=== PATIENT | male | born 1940 | race Caucasian/White ===

== ENCOUNTER 2018-04-07 09:49 | Inpatient (IN) | payer MEDICARE, BC ==
--- NOTE | 2018-04-07 11:05 | HP ---
CHIEF COMPLAINT: Exacerbation of chronic obstructive pulmonary disease with altered mental status. HISTORY OF PRESENT ILLNESS: The patient is a 77-year-old male who the brings in for altered men charli status. She states that it occurred about 11:00 p.m. last night that he would not go to bed, was disoriented and talking out of his head, did not know where he was, extremely confused, had a high f all risk. He states that he has for several days has been feeling tired and worn out with no energy and on arrival in my office today, his blood pressure is 83/46. Initially he had a pulse rate 142, b ut when I examined him I picked up a pulse of high 60s, low 70s. He is a pale and weak. He continue s to smoke despite orders to stop for many years now. He gets winded with minimal exertion. Current ly, he is alert, oriented, and responsive. Denies chest pain, but is constantly dyspneic. PAST MEDICAL HISTORY: COPD, chronic insomnia, severe generalized anxiety disorder, mild noninsulin d ependent diabetes, BPH. He has presbycusis. PAST SURGICAL HISTORY: Included left inguinal herniorrhaphy, appendectomy in 2010 and hemilaminectom y in 2014. ALLERGIES: He is allergic to nothing. MEDICATIONS ON ADMISSION: Alprazolam 1 mg b.i.d., temazepam 30 mg at bedtime, Avodart 0.5 mg once a day, Dulera 200 mcg 2 puffs daily, metformin 500 mg daily, Flomax 0.4 mg daily, Tesfaye aspirin 81 mg d aily, and an [id number] prostate formula. SOCIAL HISTORY: He is , continues to smoke. Denies significant alcohol intake. He is retire d. FAMILY HISTORY: Noncontributory. REVIEW OF SYSTEMS: GENERAL: Denies fever, chills, general pain. HEENT: Denies blurred vision. He does have severe hearing disorder. He has presbycusis. Denies pa in in his ears. Nose: Denies drainage. Pharynx; denies sores or discharge. NECK: Denies any pain or swelling. CHEST: Admits to chronic shortness of breath and dyspnea. CARDIOVASCULAR: Denies chest pain or palpitations. ABDOMEN: Denies nausea, vomiting. : Denies dysuria or blood in urine or stool. MUSCULOSKELETAL: Admits to general weakness in all muscle groups, but denies specific areas of pain and swelling. HEME/LYMPH: Denies areas of edema or nodules. SKIN: No acute rashes or lesions. NEUROLOGIC: will speak for the patient stating how confused and disoriented he was the last ayaan tierney. He is somewhat improved at this point. PHYSICAL EXAMINATION: VITAL SIGNS: As previously mentioned, blood pressure 83/46, pulse 142, respirations 20, temperature 98.2, weight 143. He is 5 feet 9 inches tall. GENERAL: This is a cachectic, elderly male, alert, oriented, and responsive at this time. HEENT: Shows temporal wasting. Pupils at 2 mm with diminished reactivity. Arcus senilis bilaterall y. Nares and pharynx are clear. NECK: Supple, trachea midline, no mass. CHEST: With diminished breath sounds throughout. HEART: Regular rate and rhythm without murmur at a rate in the 70s from my exam. ABDOMEN: Soft, nontender, without organomegaly. GENITOURINARY: Normal male. EXTREMITIES: Without clubbing, cyanosis, or edema. Normal range of motion present. SKIN: Without new rashes or lesions. Turgor is good. NEUROLOGIC: Cranial nerves are intact. Gait and cerebellar function are weak, but intact. Sensory exam is grossly normal. Mental status shows slowed mentation and occasional confusion, but it does n ot last and he corrects himself and reorients himself. Deep tendon reflexes 2+ bilaterally. LABORATORY: Lab and x-rays are pending at the time of admission. ASSESSMENT: 1. Altered mental status - rule out hypoxia versus sundowning. 2. Exacerbation of chronic obstructive pulmonary disease. 3. Severe generalized anxiety disorder. 4. Mild noninsulin dependent diabetes mellitus. 5. Hard of hearing. PLAN: The plan will be lab evaluation, x-rays, Pulmonology consultation, serial reevaluation, and [facility] will be taking over coverage.
[2018-04-07] MEDS ORDERED: Sodium Chloride 0.9% 1,000 ML IV SCH (11:45)
[2018-04-07 12:08] VITALS: BMI 20.7
--- NOTE | 2018-04-07 12:18 | RAD ---
CHEST TWO VIEWS: HISTORY: Chronic obstructive pulmonary disease. COMPARISON: 04/03/2003 FINDINGS: The cardiac silhouette and pulmonary vasculature are unremarkable. The mediastinum is midline with a ortic calcification. Lungs are prominently hyperinflated. At the right posterior lung base, a wedge shaped parenchymal opacity shows some internal cylindrical lucency. No evidence of pneumothorax or significant pleural fluid. IMPRESSION: 1. Wedge shaped peripheral parenchymal opacity at the right posterior lung base. This may represent an area of chronic or recurrent inflammation. An aggressive process is not reliably demonstrated. 2. Chronic obstructive pulmonary disease. 3. Atherosclerosis. POS: [facility]
[2018-04-07 12:23] LABS: INR-International Normal Ratio 1.4; Prothrombin Time 16.8 SEC (12.0-14.7)
[2018-04-07 12:36] LABS: Hemoglobin A1c 5.7 % (4.0-6.0)
[2018-04-07 12:40] LABS: ALT (SGPT) 9 U/L (8-55); AST (SGOT) 16 U/L (5-34); Albumin 4.6 g/dL (3.4-4.8); Alkaline Phosphatase 60 U/L (40-150); Anion Gap 15 mmol/L (10-20); BUN (Urea Nitrogen) 14 mg/dL (8.4-25.7); Bilirubin, Total 1.1 mg/dL (0.2-1.2); Calc. Creatinine Clearance 61 mL/min (70-130); Calcium 10.4 mg/dL (7.8-10.44); Carbon Dioxide 25 mmol/L (23-31); Chloride 101 mmol/L (98-107); Estimated GFR-MDRD 84; Globulin 3.4 g/dL (2.4-3.5); Glucose 116 mg/dL (83-110); Magnesium 2.1 mg/dL (1.6-2.6); Potassium 4.7 mmol/L (3.5-5.1); Sodium 136 mmol/L (136-145)
--- NOTE | 2018-04-07 12:42 | CT ---
CT HEAD WITHOUT CONTRAST: Date: 04/07/18 Multiple axial tomograms obtained through the head without IV enhancement. INDICATION: Altered mental status. FINDINGS: Mild cortical volume loss. Ventricle size and position within normal range. There is a small hyperdense focus seen within the sulcus of left lateral frontal lobe measuring 5-6 m m. This does not have the typical appearance of subarachnoid blood and it does not appear to be intra parenchymal. Considerations include small metastatic lesion. Follow-up is recommended with contrasted MRI. There is no evidence of infarct. No other evidence that would indicate hemorrhage or mass. IMPRESSION: 5.0 mm hyperdense lesion in the region of the sulcus of left frontal lobe laterally. Small metastatic deposit is a consideration. This cannot be adequately characterized on this unenhanced CT. Recommend further evaluation with pre and postcontrast MRI brain. DARSHANA Reid. POS: [facility]
[2018-04-07 12:43] LABS: CKMB 2.8 ng/mL (0-6.6); Troponin I Less than 0.010 ng/mL (< 0.028)
--- NOTE | 2018-04-07 12:43 | CT ---
CT CHEST NONCONTRAST: History: Dyspnea. COPD. FINDINGS: Lungs are hyperinflated with scattered areas of scarring. At the right posterior medial lung base, a focal areas of wedge shaped interstitial thickening with central small cysts correlates with the abno rmality on chest radiograph. Much less prominent areas of scarring are present at the lateral aspect of the right lower lobe and left lower lobe and in the lingula of the left upper lobe. A somewhat thi n walled vertically oriented oval cystic cavity is present at the medial left apex. No lobar consolid ation, pneumothorax, or pleural fluid. Lack of contrast limits evaluation of the soft tissues. There is calcification in the arterial struct ures. IMPRESSION: COPD with mild to moderate peripheral destructive parenchymal changes. Areas of interstitial distorti on and cavitation at the periphery of the lungs is favored to be related to recurrent episodes of inf lammation. As a conservative measure, please consider follow up CT chest in 6-12 months to evaluate for stabilit y (or possibly even resolution of the right lower lobe abnormality) as opposed to progression. POS: [facility]
[2018-04-07 12:52] LABS: Hemoglobin 16.6 g/dL (14.0-18.0); Mean Corpuscular HGB CONC 32.4 g/dL (32.0-36.0); Mean Corpuscular Hemoglobin 32.4 pg (27.0-31.0); Mean Platelet Volume 6.5 fL (7.4-10.4); Platelet Count 238 thou/uL (130-400); RBC Distribution Width 13.5 % (11.5-14.5); Red Blood Cell (RBC) Count 5.12 mill/uL (4.70-6.10); White Blood Cell (WBC) Count 25.2 thou/uL (4.8-10.8)
[2018-04-07 13:03] LABS: Band 30 % (5-11); Lymphocytes 5 % (21-51); MDiff Complete? YES; Monocytes 4 % (0-10); Neutrophil 60 % (42-75); PLT Morphology Comment Appears Adequate; Reactive Lymphocytes 1 % (0-10); Toxic Granulation SLIGHT; Vacuoles SLIGHT
[2018-04-07 14:20] LABS: Actual Bicarbonate (HCO3a) 22.1 mEq/L (22-28); Base Excess (BEa) -1.5 mEq/L (-2.0 to +3.0); CO2 Tension 35.6 mmHg (35.0-45.0); O2 Tension (PaO2) 58.3 mmHg (> 70.0); pH, Arterial 7.42 (7.35-7.45)
[2018-04-07 14:21] LABS: Calcium, Ionized 1.2 mmol/L (1.12-1.30); Hemoglobin (Hb) 15.6 g/dL (14.0-18.0)
[2018-04-07 14:22] LABS: Analyzer IN Cardio OR; Puncture Site L.B.
[2018-04-07] MEDS ORDERED: Gadobenate Dimeglumine 529 MG/1 ML (20ML VIAL) ONE (15:25)
[2018-04-07 15:43] LABS: Bilirubin Small (Negative); Blood, Urine Trace (Negative); Clarity CLEAR (Clear); Glucose, Urine (Dipstick) Negative (Negative); Leukocyte Negative (Negative); Nitrite Negative (Negative); Protein, Urine (Dipstick) 30 mg/dL (Neg-Trace); Specific Gravity, Urine 1.029 (1.002-1.036); pH, Urine 5.5 (5.0-9.0)
[2018-04-07] MEDS: ALPRAZolam 0.5 MG TAB PO SCH ×2 (15:45→21:59)
[2018-04-07 15:47] LABS: Bacteria/HPF None Seen HPF (None Seen); Hyaline Casts/LPF 4-6 HYALINE CAST LPF (0-3 Hyaline); Pathc Cast-AUWi Flag 0.43 (0-2.49); Squamous Epithelial 0-3 HPF (0-3); WBC/HPF 0-3 HPF (0-3)
[2018-04-07 16:11] LABS: Transitional Epithelial 0-3 HPF (0-3)
[2018-04-07] MEDS ORDERED: Budesonide 0.5 MG/2 ML NEB NEB SCH (18:30)
[2018-04-07 20:04] LABS: Lactic Acid 2.4 mmol/L (0.5-2.2)
--- NOTE | 2018-04-07 20:58 | MRI ---
MR OF THE BRAIN WITH AND WITHOUT CONTRAST 04/07/18 INDICATION: Evaluate brain lesion. COMPARISON: Noncontrast CT of the brain dated 04/07/18. TECHNIQUE: Multiplanar and multisequence MR images were obtained of the brain with and without contrast utilizin g 13 mL of Multihance. FINDINGS: The focus of hyperdensity involving the cortex of the left frontal lobe demonstrates T2 hyperintensit y with surrounding hemosiderin ring. There is prominent blooming seen on the gradient echo images ass ociated with this lesion. There is enhancement of the lesion that is fairly robust. No additional foc al lesion is evident. There is mild generalized cerebral atrophy. No definite restricted diffusion is seen to suggest acute infarction. There are appropriate flow voids seen within the major intracranial vessels. [place] lens es have been replaced. There is some mild mucosal thickening within the paranasal sinuses. IMPRESSION: 1. The hyperdense lesion involving the left frontal cortex on the comparison CT corresponds to a T2 hyperintense lesion with surrounding hemosiderin ring and enhancement. Differential consideration s for this abnormality due to patient's age and enhancement characteristics is suspicious for calcifi ed neoplasm. This could be related to metastatic disease or a primary brain neoplasm such as oligoden droglioma. Cavernous malformation is felt to be less likely. 2. No additional focal lesion identified. 3. No evidence of acute infarct or hydrocephalus. POS: [facility]
[2018-04-07] MEDS ORDERED: cefTRIAXone\\ROCEPHIN 2 GM in Sodium Chloride 0.9% 100 ML IVPB SCH (21:00)
[2018-04-07] MEDS ORDERED: Azithromycin 500 MG in Sodium Chloride 0.9% 250 ML 250 ML IVPB SCH (22:00)
--- NOTE | 2018-04-08 01:24 | CON ---
DATE OF CONSULTATION: 04/07/2018 SERVICE: Pulmonary Medicine. REASON FOR CONSULTATION: COPD exacerbation. HISTORY OF PRESENT ILLNESS: Patient is a 77-year-old white male with past medical history significant for dyspnea on exertion. It has been present for about a week and half to 2 weeks. He has been slowly progressive over this period of time. Ultimately, he went to his primary care physician for essentially a different reason, but when Dr. Lau found out that he was having progressive dyspnea on exertion, he subsequently admitted him to the hospital for close observation and evaluation of possible lung and heart issues. He denies any current chest pain, nausea, vomiting, palpitations, fevers, or chills. His cough is at baseline and brings up a little bit of pale yellow to white sputum. Otherwise, he is in his usual state of health. He denies having any new rashes, hot, red, swollen joints, dysuria, frequency, diarrhea. PAST MEDICAL HISTORY: 1. COPD. 2. Insomnia. 3. Generalized anxiety disorder. 4. Longstanding tobacco abuse. 5. Presbycusis. 6. Benign prostate hyperplasia. 7. Type 2 diabetes mellitus, mild. PAST SURGICAL HISTORY: 1. Left inguinal herniorrhaphy. 2. Appendectomy. 3. Hemilaminectomy. ALLERGIES: No known drug allergies. MEDICATIONS: Listed as home medications as well as inpatient medications were reviewed. A couple of small updates were made. SOCIAL HISTORY: He is a pack a day smoker and has done so for greater than 50 years. He denies any significant alcohol or illicit drug use. He is currently retired. He is . He has no exposures to asbestos, dusts, or tuberculosis that he is aware of. FAMILY HISTORY: Noncontributory. REVIEW OF SYSTEMS: General, head, ears, eyes, nose, throat, cardiovascular, respiratory, GI, , musculoskeletal, neurologic and skin is negative except as mentioned in the HPI. PHYSICAL EXAMINATION: VITAL SIGNS: Afebrile, pulse 77, blood pressure 143/67, respirations 20, saturation 96% on 2 liters nasal cannula. GENERAL: Patient is awake, alert, no apparent distress. LUNGS: Very reduced air entry. There is some rhonchi and crackles are present. He is really not moving enough air to hear much adventitious sound. He has a prolonged expiratory phase, but I do not specifically hear any wheezing. That being said, with forced exhalation, wheezing is elicited. HEART: Normal rate, regular. ABDOMEN: Soft, nontender, nondistended. Bowel sounds are positive. MUSCULOSKELETAL: No cyanosis or clubbing. There is no pitting in the bilateral lower extremities. NEUROLOGIC: Grossly nonfocal. LABORATORY DATA: WBC 25.2, hemoglobin 16.6, platelets 238,000. Neutrophil count is 60%, band counts are 30% on top of that. INR 1.4. PH 7.42, pCO2 of 35 , pO2 of 58 on 2 liters nasal cannula. Basic metabolic profile and liver function studies are essentially unremarkable. Hemoglobin A1c 5.7, lactate 2.4. Cortisol falls within normal limits with a normal troponin. Urinalysis is effectively unremarkable. IMAGING: CT of the brain demonstrates no evidence of infarction or mass effect. There is a 5 mm hyperdense lesion, which really cannot be characterized. CT of the chest demonstrates there is a very clear left upper lobe cavity. Chronicity is not identified. There is also an infiltrate in the right lower lobe, superimposed on emphysematous lung changes, which are scattered throughout bilateral lung fontana. ASSESSMENT: 1. Left upper lobe cavity. 2. Severe sepsis, resolving. 3. Community-acquired pneumonia. 4. Dyspnea on exertion, progressive over a period of roughly 2 weeks. 5. Chronic obstructive pulmonary disease exacerbation. PLAN: I will deescalate the prednisone to 40 mg p.o. daily. We are going to continue treating his community-acquired pneumonia with azithromycin, and Rocephin. MRI of the brain has already been ordered. Once he clears his infectious profile, he continues to have progressive dyspnea with exertion, the heart needs to be evaluated. We can evaluate the severity of his COPD in the outpatient setting and consider modifying some of his long-acting inhalers. I will also need a repeat CT scan 6 weeks in the outpatient setting to make certain that this left upper lobe cavitary lesion is stable and the infiltrate has resolved. If it is not, a bronchoscopy may need to be considered as cavitating squamous cell carcinoma certainly within my differential. The location of the community-acquired pneumonia is consistent with overt aspiration related disease. Acid reflux precautions need to be advised moving forward and will need to make certainly minimize anything that could create an environment in which that promotes aspiration. Pulmonary will continue to follow while he remains in house. 70 minutes have been devoted to this patient in various activities. I personally reviewed all imaging studies and laboratory data noted within this document. For fifty percent of this time, I was interacting with the patient at the bedside or coordinating care with the care team. For the remainder of the time I was immediately available to the patient in the hospital unit. JUAN MANUEL
[2018-04-08 07:34] LABS: Band 21 % (5-11); Burr Cells SLIGHT = 2-5 cells (100X) (0-1/hpf); Hemoglobin 13.6 g/dL (14.0-18.0); Lymphocytes 2 % (21-51); MDiff Complete? YES; Mean Corpuscular HGB CONC 33.3 g/dL (32.0-36.0); Mean Corpuscular Hemoglobin 32.9 pg (27.0-31.0); Mean Corpuscular Volume 98.8 fL (78.0-98.0); Mean Platelet Volume 6.5 fL (7.4-10.4); Metamyelocyte 2 % (0-0); Monocytes 2 % (0-10); Neutrophil 73 % (42-75); Platelet Count 225 thou/uL (130-400); Polychromasia SLIGHT = 2-3 cells (100X) (0-2/hpf); RBC Distribution Width 13.5 % (11.5-14.5); Red Blood Cell (RBC) Count 4.12 mill/uL (4.70-6.10); White Blood Cell (WBC) Count 17.1 thou/uL (4.8-10.8)
[2018-04-08] MEDS ORDERED: predniSONE 20 MG TAB PO SCH (08:00)
[2018-04-08] MEDS ORDERED: metFORMIN 500 MG TAB PO SCH (08:00)
[2018-04-08] MEDS ORDERED: Dutasteride 0.5 MG CAP PO SCH (09:00)
[2018-04-08] MEDS ORDERED: Tamsulosin HCl 0.4 MG CAP PO SCH (09:00)
[2018-04-08] MEDS: ALPRAZolam 0.5 MG TAB PO SCH ×3 (09:23→15:32)
--- NOTE | 2018-04-08 11:56 | CON ---
DATE OF CONSULTATION: 04/08/2018 REFERRING PHYSICIAN: Dr. Kyree Lau IMPRESSION: 1. Transient encephalopathy secondary to either hypotension or possibly nonconvulsive seizure. 2. Left parietal hemorrhagic enhancing brain lesion which may be a source of seizures, otherwise felipe ears reasonably benign in appearance and may be a vascular malformation. PLAN: 1. EEG. 2. Office followup to monitor the left parietal lesion. Mr. Varner is a 77-year-old man with a history of COPD. His reports that the night before last, h e started acting inappropriately, he got up in the middle of the night and turned on the coffee pot. He thought that it was time to get up and get ready for the day. She tried to reorient him, but he continued to act inappropriately. In the morning she brought him to Dr. Lau' office. He reportedl y had a blood pressure in the 80/40 range. He was sent over to the hospital for admission. His bloo d pressure improved at 134/65 on arrival. His mental status cleared yesterday afternoon by her asses sment. There were no focal twitching or other abnormal movements. He has had some transient confusi on in the past at least on 1 prior occasion. He had not made any changes in his usual medications an d there was nothing out of the ordinary that preceded the confusion. He feels back to normal at this point. PAST MEDICAL HISTORY: COPD. FAMILY HISTORY: Noncontributory. ALLERGIES: None. MEDICATION LIST: Reviewed. SOCIAL HISTORY: Positive for tobacco. REVIEW OF SYSTEMS: No complaint of headache, nausea, vomiting, chest pain, shortness of breath. PHYSICAL EXAMINATION: GENERAL: He is a thin elderly man in no acute distress. VITAL SIGNS: Blood pressure 126/78, temperature 98.6. HEENT: Within normal limits. NECK: Supple. EXTREMITIES: No cyanosis. NEUROLOGIC: He is alert and appropriate. Her speech is fluent and clear. His exam is nonfocal. No abnormal movements were seen. MRI images were reviewed. CT scan of the chest shows COPD changes, but no evidence of malignancy. LABORATORY STUDIES: Initial white count was 25.2 and dropped to 17.1. Normal H&H. Coags were in no rmal limits. ABG showed a pH of 7.42, pCO2 of 35, O2 of 58. Chemistry panel was unremarkable and ur inalysis showed some mild hematuria, but otherwise unremarkable. SUMMARY: Elderly man who had some transient confusion in association with hypotension, hemorrhagic b rain lesion on the left, which has raised some question about the possibility of seizures. I would be happy to follow up with him as an outpatient, but he appears clinically stable at this poi nt.
--- NOTE | 2018-04-08 14:06 | PRG ---
DATE OF SERVICE: 04/08/2018 SERVICE: Pulmonary Medicine. INTERVAL HISTORY: The patient is doing fantastic from a cardiovascular and respiratory standpoint. His mentation is improved to baseline. He has been breathing comfortably in bed. He has been able to walk around the room without significant dyspnea. His is here today and she indicates that his brain is back to normal. Otherwise, there has been no interval change to his condition. PHYSICAL EXAMINATION: VITAL SIGNS: Afebrile, pulse 76, blood pressure 126/78, respirations 20, saturation 96% on 2 liters nasal cannula. GENERAL: The patient is awake, alert, no apparent distress. LUNGS: Decent air entry. There is no prolonged expiratory phase, wheezing, rhonchi, or crackles present. HEART: Normal rate, regular. ABDOMEN: Soft, nontender, nondistended. Bowel sounds are positive. MUSCULOSKELETAL: No cyanosis or clubbing. No pitting in the bilateral lower extremities. NEUROLOGIC: Grossly nonfocal. LABORATORY DATA: WBC down trending to 17.1, hemoglobin 13.6, platelets 225, 000. Neutrophil count is improving with a decreasing band count to 21%. INR 1.4. Basic metabolic profile and liver function studies were previously unremarkable. Lactate is 2.4, troponin 0.01. Blood cultures x2 are unremarkable. IMAGING DATA: MRI of the brain demonstrates small lesion with hyperintensity and calcifications, possibly consistent with a mass with underlying calcifications. ASSESSMENT: 1. Metabolic encephalopathy, resolved. 2. Community-acquired pneumonia, improving. 3. Severe sepsis, resolving. 4. Left upper lobe cavity. 5. Chronic obstructive pulmonary disease. DISCUSSION AND PLAN: Patient can be considered for transition out of the hospital today. He will need 40 mg of prednisone daily for the next 5 days. He also requires azithromycin and Omnicef for a period of 5 days. I would like to repeat a CT scan of his chest in the outpatient setting in roughly 6 weeks to make certain that the pulmonary cavity remains stable. If it changes, a bronchoscopy may need to be considered. We talked to the patient about acid reflux precautions today. We also talked about sleep apnea which he likely has , but he has declined investigation with polysomnogram at this time. Pulmonary will continue to follow if the patient remains inhouse. JUAN MANUEL
[2018-04-08 16:39] VITALS: BP 139/59; TEMP 98
--- NOTE | 2018-04-12 10:11 | EEG ---
Referring Physician: DR. GRIJALVA EEG # [id number] TEST TYPE: ROUTINE PORTABLE INPATIENT REPORT: AN EEG USING THE INTERNATIONAL TEN-TWENTY SYSTEM OF ELECTRODE PLACEMENT WAS PERFORMED. The waking background is a 9-10 hertz alpha frequency. The patient remained awake throughout the study. Photic stimulation was unremarkable. No epileptiform features were seen. IMPRESSION: THIS IS A NORMAL AWAKE EEG. Supervisor [employer]: YOUNG Shaker Out: JERRY.MALLORY ZAMBRANO
== END 2018-04-08 18:35 | disposition home or self-care (01) | DRG 871 ==
LOC: 2SE 09:49 → 2NO 10:35
PROVIDERS: ADMIT Specialist; ATTEND Specialist
DX: A41.9 Sepsis, unspecified organism (principal); G93.41 Metabolic encephalopathy; Q28.2 Arteriovenous malformation of cerebral vessels; J44.1 Chronic obstructive pulmonary disease with (acute) exacerbation; R65.20 Severe sepsis without septic shock; F41.1 Generalized anxiety disorder; E11.9 Type 2 diabetes mellitus without complications; N40.0 Benign prostatic hyperplasia without lower urinary tract symptoms; Z79.84 Long term (current) use of oral hypoglycemic drugs; F17.210 Nicotine dependence, cigarettes, uncomplicated
CPT/HCPCS: 36415; 36416; 70450; 70553; 71046; 71250; 80053; 81001; 82533; 82553; 82805; 83036; 83605; 83735; 84484; 85025; 85610; 87040; 89220; 93005; 93010; 94640; 95816; 95819; A4216; A9579; J0456; J0696; J2920; J3475; J7050; J7506; J7620; J7626

== ENCOUNTER 2018-06-15 11:59 | Outpatient (CLI) | payer MEDICARE, BC ==
--- NOTE | 2018-06-15 15:11 | CT ---
CT OF THE THORAX WITHOUT IV CONTRAST: Date: 06/15/18 INDICATION: History of lung nodules and smoking. COMPARISON: Prior exam dated 04/07/18. FINDINGS: The cavitary thick-walled cystic lesion involving the left lung apex is relatively stable in size rosales suring 2.3 x 3.4 cm. There are new areas of patchy air space consolidation within the apical posterio r segment of the left upper lobe. There is some reticular nodularity within the anterior segment of t he left upper lobe which is new. This is superimposed on severe emphysema. There are areas of scarrin g and nodularity involving the lingula which is stable. Areas of bronchiectasis and scarring within t he right middle lobe are stable. Small subpleural ground-glass nodule within the left lower lobe on i mage 114 of series 3 measuring 4.4 mm is stable. There is a calcified granuloma in the left lower lob e which is stable. There is diffuse osteopenia. There is mild thoracolumbar scoliosis. There is scattered degenerative a nd osteoarthritic change. No definite destructive osseous lesion is evident. IMPRESSION: 1. Stable cavitary cystic lesion seen within the left lung apex. 2. New areas of patchy air space consolidation left upper lobe suspicious for infection. Short-term follow-up in 6-8 weeks is recommended to document resolution. 3. Stable pulmonary nodules within the lingula and left lower lobe. 4. Stable severe COPD change. POS: [facility]
== END 2018-06-15 12:00 | disposition home or self-care (01) ==
LOC: BICCT 11:59
PROVIDERS: ATTEND Internal Medicine
DX: R91.1 Solitary pulmonary nodule (principal); R91.8 Other nonspecific abnormal finding of lung field
CPT/HCPCS: 71250

== ENCOUNTER 2018-09-02 09:36 | Inpatient (IN) | payer MEDICARE, BC ==
--- NOTE | 2018-09-02 10:34 | RAD ---
CHEST PA AND LATERAL: Date: 09/02/18 HISTORY: 78-year-old male with history of cough. COMPARISON: 04/07/18. FINDINGS: Bilateral hyperinflation and chronic lung changes with some interstitial and reticulonodular parenchy mal changes. There appear to be some bilateral bullous changes, including the right lower lobe. There is some flattening of the hemidiaphragms and blunting of the costophrenic angles. IMPRESSION: Hyperinflation and chronic changes bilaterally. There appears to be more hyperinflation than seen on the prior CT scan, but no evidence for new confluent pneumonia or overt edema. POS: [facility]
[2018-09-02] MEDS ORDERED: methylPREDNISolone Sod Succ/PF 125 MG/2 ML VIAL ONE (10:58)
[2018-09-02 11:03] LABS: #Basophils 0.1 thou/uL (0.0-0.2); #Lymphocytes 1.4 thou/uL (1.20-3.40); #Monocytes 1.3 thou/uL (0.11-0.59); #Neutrophils 15.7 thou/uL (1.40-6.50); %Basophils 0.4 % (0.0-1.0); %Eosinophils 0.1 % (0.0-10.0); %Lymphocytes 7.7 % (21.0-51.0); %Monocytes 6.8 % (0.0-10.0); %Neutrophils 85.1 % (42.0-75.0); Hemoglobin 17.6 g/dL (14.0-18.0); Mean Corpuscular HGB CONC 33.1 g/dL (32.0-36.0); Mean Corpuscular Hemoglobin 32.2 pg (27.0-31.0); Mean Corpuscular Volume 97.3 fL (78.0-98.0); Mean Platelet Volume 6.7 fL (7.4-10.4); Platelet Count 198 thou/uL (130-400); RBC Distribution Width 14.1 % (11.5-14.5); Red Blood Cell (RBC) Count 5.48 mill/uL (4.70-6.10); White Blood Cell (WBC) Count 18.5 thou/uL (4.8-10.8)
[2018-09-02 11:49] LABS: ALT (SGPT) 11 U/L (8-55); AST (SGOT) 21 U/L (5-34); Albumin 4.3 g/dL (3.4-4.8); Alkaline Phosphatase 64 U/L (40-150); Anion Gap 19 mmol/L (10-20); BUN (Urea Nitrogen) 17 mg/dL (8.4-25.7); Bilirubin, Total 0.6 mg/dL (0.2-1.2); Calc. Creatinine Clearance 0 mL/min (70-130); Calcium 9.8 mg/dL (7.8-10.44); Carbon Dioxide 20 mmol/L (23-31); Chloride 100 mmol/L (98-107); Estimated GFR-MDRD 89; Globulin 3.6 g/dL (2.4-3.5); Glucose 101 mg/dL (83-110); Potassium 4.6 mmol/L (3.5-5.1); Protein, Total 7.9 g/dL (5.8-8.1); Sodium 134 mmol/L (136-145)
--- NOTE | 2018-09-02 11:56 | CT ---
CT CHEST WITHOUT IV CONTRAST: HISTORY: An 78-year-old male with a history of a productive cough and shortness of breath. COMPARISON: 06/15/2018 FINDINGS: Marked bilateral hyperinflation and chronic lung changes are noted. Stable somewhat thick-walled bul lae or small cavity in the left apex. Scattered areas of linear and nodular scarring in the right mi ddle lobe and lingula. Some improvement in the previously noted patchy air space opacity changes in the left upper lobe. There are some new patchy interstitial and reticulonodular air space opacity ch anges in the right lower lobe, anteriorly and laterally, as well as posteriorly and medially, evidenc e for acute pneumonitis. Small, stable amount of pericardial effusion. No significant pleural effus ion. Visualized upper abdomen is unremarkable. IMPRESSION: 1. Hyperinflation and chronic lung changes. 2. New patchy interstitial and nodular air space opacity changes in the right lower lobe from prior study, evidence for atypical pneumonia or pneumonitis. 3. Improvement in the previously noted air space opacity in the left upper lobe. 4. Stable thick-walled bullae in the left apex, as well as bilateral reticulonodular parenchymal carolina nges, particularly in the right middle lobe and lingula. POS: [facility]
[2018-09-02] MEDS ORDERED: Azithromycin 500 MG VIAL ONE (13:10)
[2018-09-02] MEDS ORDERED: cefTRIAXone\\ROCEPHIN 2 GM VIAL ONE (13:10)
[2018-09-02 14:54] VITALS: BMI 20.3
[2018-09-02] MEDS ORDERED: Acetaminophen 325 MG TAB PO PRN (15:25)
[2018-09-02] MEDS ORDERED: Nicotine 14 MG PATCH TOP SCH (15:30)
[2018-09-02] MEDS ORDERED: Azithromycin 500 MG in Sodium Chloride 0.9% 250 ML 250 ML IVPB SCH (16:00)
[2018-09-02 18:35] LABS: Bilirubin Negative (Negative); Blood, Urine Trace (Negative); Clarity CLEAR (Clear); Glucose, Urine (Dipstick) Negative (Negative); Leukocyte Negative (Negative); Nitrite Negative (Negative); Protein, Urine (Dipstick) 30 mg/dL (Neg-Trace); Specific Gravity, Urine 1.025 (1.002-1.036); Urobilinogen 0.2 mg/dL (0.2-1.0)
[2018-09-02 18:37] LABS: Bacteria/HPF None Seen HPF (None Seen); Hyaline Casts/LPF 0-3 HYALINE CAST LPF (0-3 Hyaline); Pathc Cast-AUWi Flag 0.29 (0-2.49); Squamous Epithelial 0-3 HPF (0-3); WBC/HPF 0-3 HPF (0-3)
[2018-09-02] MEDS: Budesonide 0.5 MG/2 ML NEB NEB SCH (18:48)
[2018-09-02] MEDS: guaiFENesin ER 600 MG TAB PO SCH (20:56)
[2018-09-02] MEDS: ALPRAZolam 1 MG TAB PO SCH (20:56)
--- NOTE | 2018-09-02 22:23 | HP ---
CHIEF COMPLAINT: Right middle lobe pneumonia. HISTORY OF PRESENT ILLNESS: The patient is an 78-year-old male, who had seen Dr. Lau earlier in the week in the office with what was felt to be acute bronchitis. He has severe emphysema, continues to smoke. He was placed on the tapering dose of prednisone along with Levaquin 500 mg daily. The patient apparently has continued to cough and be short of breath with exertion. He denies any fever, nausea, vomiting, diarrhea. He uses oxygen occasionally at his home, but he began to have some discomfort in his chest, rated 6/10, and at this point, came to [facility], where he was re-evaluated. In the ER, chest x-ray failed to show any infection; however, on CT of the chest, pneumonia was detected. Dr. Lau was then contacted for admission. PAST MEDICAL HISTORY: Significant for severe COPD - emphysema. He has borderline type 2 diabetes. Past medical history is with hyperlipidemia, osteoarthritis, severe anxiety disease, also has presbycusis, BPH, and chronic insomnia. PAST SURGICAL HISTORY: Includes left inguinal herniorrhaphy, appendectomy in 2010, hemilaminectomy in 2014. ALLERGIES: HE HAS NO KNOWN DRUG ALLERGIES. MEDICATIONS ON ADMISSION: Include: 1. Alprazolam 1 mg b.i.d. 2. Temazepam 30 mg at bedtime. 3. Avodart 0.5 mg daily. 4. Dulera 200 mcg two puffs b.i.d. 5. Metformin 500 mg daily. 6. Flomax 0.4 mg. 7. Enteric-coated aspirin 81 mg daily. 8. Saw [place]. SOCIAL HISTORY: He is . Continues to smoke. Denies alcohol intake. FAMILY HISTORY: Noncontributory. REVIEW OF SYSTEMS: GENERALLY: Denies fever, chills, pain. HEENT: Denies blurred vision. He has no sores in ears, nose, or throat. No drainage. He has severe presbycusis, for which he wears hearing aids. NECK: Normal range of motion. No pain with range of motion. CHEST: Shortness of breath that is chronic with chronic cough, nonproductive. HEART: Denies chest pain or palpitations. ABDOMEN: Denies nausea, vomiting, diarrhea. : Denies blood in urine or stool. Denies painful urination or frequency. MUSCULOSKELETAL: General weakness in most major muscle groups with obvious muscular atrophy in the main muscle groups. Range of motion is still normal without clubbing, cyanosis, or edema. HEME/LYMPH: Denies any bruising, ecchymosis, or edema. SKIN: No new rashes or lesions. NEUROLOGIC: Denies headaches. No trouble with confusion, paresthesias, anesthesias. PHYSICAL EXAMINATION: At the time of admission: VITAL SIGNS: Blood pressure is 158/73, pulse 94, respirations 30, temperature 98.2, pain 6/10, O2 saturation 97% on room air. GENERALLY: Mild cachectic male, alert, oriented, and cooperative. HEENT: Mild temporal wasting with sunken eyes. Pupils equal, round, reactive to light, diminished reactivity. 1-2 mm pupils with arcus senilis bilaterally. TMs, nares, pharynx are clear. NECK: Supple. Trachea midline. No mass. CHEST: With diminished breath sounds throughout with faint audible rales in the right middle lobe area. HEART: Regular rate and rhythm. ABDOMEN: Scaphoid without hepatosplenomegaly. Nontender. : Deferred. EXTREMITIES: Without clubbing, cyanosis, or edema. Symmetric muscular wasting in upper and lower extremities noted. Range of motion normal. Skin: With occasional areas of bruising noted, but no acute lesions or rashes. NEUROLOGIC: Cranial nerves are intact. Sensory exam is intact. Mental status is significant for anxiety, but that is his baseline. Gait and cerebral function not tested at this time. LAB WORK: Thus far, chest x-ray; no acute cardiopulmonary disease. Chest CT, right lower lobe pneumonia. WBCs are 18.5, hemoglobin 17.5, hematocrit 53.4 with platelets of 198. Sodium is 134, potassium 4.6, chloride 100, CO2 of 20. BUN 17, creatinine 0.83 with a GFR of 89. Lactic acid elevated at 2.7. Liver function is normal. Troponin is negative. Globulin is high at 3.6. ASSESSMENT: 1. Right middle lobe pneumonia, failed outpatient treatment. 2. Severe chronic obstructive pulmonary disease -emphysema. 3. Severe anxiety disorder. 4. Tobacco dependence. PLAN: Will be IV antibiotics scheduled, nebulizer treatments, Nicotrol patch. Anxiety, his usual anxiety medicine. We will try quetiapine at bedtime to replace temazepam. This will help with his anxiety and help him sleep. The family has asked that Dr. Corral be consulted since we had scheduled an appointment with him as an outpatient and had not yet made it to that appointment. We will serially re-evaluate him. Job ID: [id number]
--- NOTE | 2018-09-02 22:32 | CON ---
DATE OF CONSULTATION: CONSULTING PHYSICIAN: Dr. Kyree Lau. REASON FOR CONSULTATION: Chronic obstructive pulmonary disease exacerbation and pneumonia. The following encompassed 50 minutes of time, of that time greater than 50% was spent with the patient and/or in the patient's unit in the hospital reviewing his records. HISTORY OF PRESENT ILLNESS: The patient is an 78-year-old male who presented to Dr. Lau's office earlier today with increasing shortness of breath and a dry cough. He did not have any fever or chills. The patient could not be seen in the office today and he was subsequently referred to the ER. In the ER, a CT was done, it showed some wispy infiltrative changes in the right lower lobe. Additionally, he has a cavitary lesion in the left upper lobe, which has improved from a chest CT that was done in May. He was noted to have an elevated white blood cell count. He has been admitted for treatment of pneumonia. At the current time, the patient said he feels better. He has no acute complaints. PAST MEDICAL HISTORY: 1. Left upper lobe cavitary lesion. 2. Chronic obstructive pulmonary disease. 3. Insomnia. 4. Anxiety. 5. Tobacco abuse. 6. Age-related hearing loss. 7. Benign prostatic hypertrophy. 8. Type 2 diabetes mellitus. PAST SURGICAL HISTORY: 1. Left inguinal hernia repair. 2. Appendectomy. 3. Hemilaminectomy. ALLERGIES: NONE. MEDICATIONS: Prior to admission; 1. Metformin 500 mg daily. 2. Temazepam 30 mg nightly. 3. Vytorin 1 tablet every evening. 4. Avodart 0.5 mg daily. 5. Stiolto Respimat one puff daily. 6. Dymista nasal spray one spray each nostril twice daily. 7. Aspirin 81 mg nightly. 8. Alprazolam 1 mg daily. SOCIAL HISTORY: The patient is at least a 2 pack per day smoker. Does not consume alcohol. Does not use illicit drugs. He is . FAMILY MEDICAL HISTORY: Unremarkable. REVIEW OF SYSTEMS: A 12-point review of systems is otherwise negative. PHYSICAL EXAMINATION: VITAL SIGNS: Temperature 97.3, pulse 74, respirations 24, O2 saturation 93% on room air, blood pressure 128/70. GENERAL: The patient is lying comfortably in bed and is in no distress. HEENT: Remarkable for slightly poor dentition. The oropharynx is clear. NECK: Without adenopathy or JVD. LUNGS: Fairly clear, but breath sounds are grossly distant. CARDIAC: S1 and S2 regular without murmur. ABDOMEN: Soft, nontender, and nondistended. EXTREMITIES: No clubbing, cyanosis, or edema. NEUROLOGIC: Grossly intact throughout. LABORATORY DATA: Sodium 134, potassium 4.6, chloride 100, CO2 of 20, BUN 17, creatinine 0.8, glucose 101. White blood cell count 18.5, hemoglobin 17.6, hematocrit 53.4, and platelet count 198 with 85% neutrophils. IMAGING: His CT and chest x-ray were reviewed personally by me. I would agree that he has infiltrative changes in the right lower lobe which are subtle, and there has been slight reduction in the volume of the cavitation in the left upper lobe. ASSESSMENT: 1. Right lower lobe pneumonia. 2. Acute hypoxic respiratory insufficiency. 3. Chronic obstructive pulmonary disease. 4. Left upper lobe lesion, which is better. PLAN: I agree with the treatment of antibiotics, steroids, and nebulization treatments. Zithromax and Levaquin overlap coverage, so I think one or the other should be discontinued - I would favor stopping the Zithromax if okay with Dr. Lau. Job ID: [id number]
[2018-09-03] MEDS ORDERED: Dextrose 50% Abboject 50 ML SYRINGE IVP PRN (07:36)
[2018-09-03] MEDS ORDERED: Dextrose 5% in Water 1,000 ML IV PRN (07:36)
[2018-09-03] MEDS: Budesonide 0.5 MG/2 ML NEB NEB SCH ×2 (08:00→19:17)
[2018-09-03 08:19] LABS: Band 30 % (5-11); Hemoglobin 14.4 g/dL (14.0-18.0); Lymphocytes 8 % (21-51); MDiff Complete? YES; Mean Corpuscular HGB CONC 32.2 g/dL (32.0-36.0); Mean Corpuscular Hemoglobin 31.2 pg (27.0-31.0); Mean Platelet Volume 6.3 fL (7.4-10.4); Monocytes 1 % (0-10); Neutrophil 61 % (42-75); Platelet Count 183 thou/uL (130-400); Red Blood Cell (RBC) Count 4.61 mill/uL (4.70-6.10); White Blood Cell (WBC) Count 19.9 thou/uL (4.8-10.8)
[2018-09-03] MEDS: guaiFENesin ER 600 MG TAB PO SCH ×2 (08:19→20:12)
[2018-09-03] MEDS: Dutasteride 0.5 MG CAP PO SCH (08:19)
[2018-09-03] MEDS: Nicotine 14 MG PATCH TOP SCH (08:19)
[2018-09-03] MEDS: ALPRAZolam 1 MG TAB PO SCH ×2 (08:20→20:13)
[2018-09-03] MEDS: Tamsulosin HCl 0.4 MG CAP PO SCH (08:20)
--- NOTE | 2018-09-03 09:44 | RAD ---
CHEST 1 VIEW: Date: 09/03/18 HISTORY: Pneumonia and sepsis. COMPARISON: CT chest prior day. FINDINGS: There is interval worsening of the right lower lobe air space opacities. No pneumothorax. Lungs are h yperinflated. Cardiac silhouette and mediastinal contours are similar. IMPRESSION: Progressive right lower lobe air space opacity concerning for progressive pneumonia. POS: [facility]
--- NOTE | 2018-09-03 11:45 | PRG ---
DATE OF SERVICE: 09/03/2018 SUBJECTIVE: He is doing well and wants to go home. OBJECTIVE: VITAL SIGNS: Temperature 97.4, pulse 78, respirations 20, O2 saturation 93% on room air. HEENT: Unremarkable. NECK: No adenopathy, JVD, or bruits. LUNGS: Clear. CARDIAC: S1 and S2, regular. ABDOMEN: Soft. EXTREMITIES: No edema. LABORATORY DATA: White blood cell count 19, hematocrit 44.7, and platelet count 183. Sodium 134, potassium 3.6, BUN 17, creatinine 0.8. Microcultures show no growth to date. ASSESSMENT: 1. Right lower lobe pneumonia. 2. Acute hypoxic respiratory failure. 3. Chronic obstructive pulmonary disease. 4. History of left upper lobe lesion. PLAN: This patient is probably stable enough to go home. His steroids can be weaned over the next week or so, and I think, Levaquin would be adequate enough to treat the pneumonia. No further Pulmonary recommendations. We will sign off. Job ID: [id number]
[2018-09-03] MEDS ORDERED: Azithromycin 500 MG in Sodium Chloride 0.9% 250 ML 250 ML IVPB SCH (13:00)
[2018-09-03] MEDS: Insulin Regular 300 UNITS/3 ML VIAL SC PRN (18:03)
[2018-09-04 05:14] LABS: Anion Gap 13 mmol/L (10-20); BUN (Urea Nitrogen) 15 mg/dL (8.4-25.7); Calc. Creatinine Clearance 77 mL/min (70-130); Calcium 8.9 mg/dL (7.8-10.44); Carbon Dioxide 22 mmol/L (23-31); Chloride 107 mmol/L (98-107); Estimated GFR-MDRD Greater than 90; Glucose 154 mg/dL (83-110); Sodium 138 mmol/L (136-145)
[2018-09-04 06:27] LABS: Band 24 % (5-11); Hemoglobin 13.9 g/dL (14.0-18.0); Lymphocytes 2 % (21-51); MDiff Complete? YES; Mean Corpuscular Hemoglobin 31.9 pg (27.0-31.0); Mean Corpuscular Volume 96.5 fL (78.0-98.0); Mean Platelet Volume 6.9 fL (7.4-10.4); Monocytes 4 % (0-10); Neutrophil 70 % (42-75); PLT Morphology Comment Appears Adequate; Platelet Count 197 thou/uL (130-400); RBC Distribution Width 14.1 % (11.5-14.5); Red Blood Cell (RBC) Count 4.35 mill/uL (4.70-6.10); White Blood Cell (WBC) Count 23.4 thou/uL (4.8-10.8)
[2018-09-04] MEDS: Insulin Regular 300 UNITS/3 ML VIAL SC PRN ×2 (06:42→22:20)
[2018-09-04] MEDS: Budesonide 0.5 MG/2 ML NEB NEB SCH ×2 (07:26→19:08)
[2018-09-04] MEDS: Dutasteride 0.5 MG CAP PO SCH (07:45)
[2018-09-04] MEDS: ALPRAZolam 1 MG TAB PO SCH ×2 (07:45→20:09)
[2018-09-04] MEDS: guaiFENesin ER 600 MG TAB PO SCH ×2 (07:45→20:09)
[2018-09-04] MEDS: Tamsulosin HCl 0.4 MG CAP PO SCH (07:46)
[2018-09-04] MEDS: Nicotine 14 MG PATCH TOP SCH (07:46)
[2018-09-04] MEDS: cefTRIAXone\\ROCEPHIN 2 GM in Sodium Chloride 0.9% 100 ML IVPB SCH (11:57)
--- NOTE | 2018-09-04 12:07 | PRG ---
DATE OF SERVICE: 09/04/2018 SUBJECTIVE: The patient is about the same. OBJECTIVE: VITAL SIGNS: On exam, temperature is 97.3, pulse 98, respirations 20, O2 sat 95% on 1 L, and blood pressure 147/71. HEENT: Unremarkable. NECK: No JVD. LUNGS: Few inspiratory crackles in both bases. CARDIAC: S1 and S2, regular. ABDOMEN: Soft. EXTREMITIES: No edema. LABORATORY DATA: White blood cell count 23.4, hematocrit 41.9, and platelet count 197 with 70% neutrophils, 24% bands. Sodium 138, potassium 4, chloride 107, CO2 of 23, creatinine 0.6, and glucose 154. ASSESSMENT: Pneumonia. PLAN: 1. Continue IV antibiotics. The patient is now on Rocephin and Levaquin. 2. I will go ahead and decrease the steroid dose as that may be adversely affecting his white count. 3. I do not believe that we are actually seeing worsening of the pneumonia at this point. I would not put too much stock into the increase in white count compared to yesterday. 4. Apparently, he has Hemoccult-positive stool and GI has been consulted for further evaluation. Job ID: [id number]
--- NOTE | 2018-09-04 19:03 | CON ---
DATE OF CONSULTATION: 09/04/2018 GASTROENTEROLOGY CONSULTATION NOTE CHIEF COMPLAINT: Hemoccult-positive stool. HISTORY OF PRESENT ILLNESS: Mr. Varner is an 78-year-old man, who was admitted with pneumonia. He has COPD, on home oxygen. He still smokes a few cigarettes per day. He had a hemoglobin of 17.6 on presentation after hydration dropped to 14.4. His hemoglobin is 13.9 today. He had Hemoccult testing performed, which was positive. He has had no overt bleeding. No red blood in the stool. No black stools. No nausea, vomiting, diarrhea, or constipation. He has normal bowel movements daily. He has had some right lower quadrant pain on and off that he finds difficult to distinguish between his chronic hip pain. No acute weight changes. PAST MEDICAL HISTORY: COPD, diabetes mellitus type 2, hyperlipidemia, osteoarthritis, BPH, and anxiety. PAST SURGICAL HISTORY: Inguinal hernia repair, appendectomy, back surgery. He had a colonoscopy back in the . FAMILY HISTORY: Negative for GI malignancy. SOCIAL HISTORY: He is a smoker still. No alcohol or drugs. ALLERGIES: NO KNOWN DRUG ALLERGIES. MEDICATIONS: Include: 1. Alprazolam. 2. Aspirin. 3. Budesonide. 4. Ceftriaxone. 5. Avodart. 6. Mucinex. 7. Levofloxacin. 8. Methylprednisolone. 9. Quetiapine. 10. Tamsulosin. REVIEW OF SYSTEMS: Negative x10 systems reviewed except as stated in the history of present illness. PHYSICAL EXAMINATION: VITAL SIGNS: Temperature 97.6, pulse 82, and blood pressure 145/72. GENERAL: He is in no acute distress. Alert and oriented x3. HEENT: Eyes have no scleral icterus. Oropharynx is clear without lesions. NECK: No cervical or supraclavicular lymphadenopathy. LUNGS: Bilateral expiratory wheezes HEART: Regular rate and rhythm without murmur. ABDOMEN: Soft, nontender, and nondistended. Bowel sounds are present. EXTREMITIES: No lower extremity edema. RECTAL: Reveals light brown stool in the rectal vault. LABORATORY DATA: Creatinine 0.68, hemoglobin is 13.9, hemoglobin yesterday 14.4 on admission, and hemoglobin was 17.6 prior to hydration. IMPRESSION: 1. Hemoccult-positive stool without any evidence of overt bleeding. His hemoglobin decreased with hydration. There is no overt bleeding. His baseline hemoglobin, however, should likely be high given his chronic chronic obstructive pulmonary disease. 2. Pneumonia. 3. Chronic obstructive pulmonary disease, on home oxygen. RECOMMENDATIONS: 1. We will add proton pump inhibitor daily since he was on steroids and aspirin. 2. Follow up in GI clinic in 2 to 4 weeks to recheck his hemoglobin and we can discuss at that point if endoscopy is appropriate based on his clinical status and trend of his blood counts. 3. Continue to monitor for overt bleeding. 4. I will sign off for now. Please call if GI can be of assistance. Job ID: [id number]
[2018-09-05] MEDS: Budesonide 0.5 MG/2 ML NEB NEB SCH ×2 (06:44→18:46)
[2018-09-05 06:50] LABS: #Lymphocytes 0.9 thou/uL (1.20-3.40); %Basophils 0.1 % (0.0-1.0); %Lymphocytes 4.7 % (21.0-51.0); %Monocytes 5.3 % (0.0-10.0); %Neutrophils 89.8 % (42.0-75.0); Hemoglobin 13.2 g/dL (14.0-18.0); Mean Corpuscular Volume 96.9 fL (78.0-98.0); Mean Platelet Volume 6.4 fL (7.4-10.4); Platelet Count 218 thou/uL (130-400); Red Blood Cell (RBC) Count 4.14 mill/uL (4.70-6.10); White Blood Cell (WBC) Count 17.8 thou/uL (4.8-10.8)
[2018-09-05] MEDS: ALPRAZolam 1 MG TAB PO SCH ×2 (09:00→20:43)
[2018-09-05] MEDS: Dutasteride 0.5 MG CAP PO SCH (09:00)
[2018-09-05] MEDS: guaiFENesin ER 600 MG TAB PO SCH ×2 (09:00→20:46)
[2018-09-05] MEDS: Tamsulosin HCl 0.4 MG CAP PO SCH (09:00)
[2018-09-05] MEDS: Nicotine 14 MG PATCH TOP SCH (09:01)
[2018-09-05] MEDS: cefTRIAXone\\ROCEPHIN 2 GM in Sodium Chloride 0.9% 100 ML IVPB SCH (09:01)
--- NOTE | 2018-09-05 11:36 | RAD ---
TWO VIEW CHEST: COMPARISON: 09/03/2018. INDICATION: Pneumonia, sepsis, followup. FINDINGS: Interval decrease in conspicuity of right basilar opacity. There is hyperinflation of the lungs with interstitial prominence. The chest is otherwise similar. IMPRESSION: 1. Interval improvement of right lower lobe opacity with mild residua remaining. 2. Chronic obstructive pulmonary disease. POS: [facility]
--- NOTE | 2018-09-05 13:31 | PQF ---
CLINICAL DOCUMENTATION IMPROVEMENT CLARIFICATION FORM: ICD-10 Updated PLEASE DO AN ADDENDUM TO THE PROGRESS NOTE WITH ANY DOCUMENTATION UPDATES OR ADDITIONS AND CARRY THROUGH TO DC SUMMARY. THANK YOU. DATE: 09/05/18 ATTN: DR. RICHARDS Please exercise your independent, professional judgment in responding to the clarification form. Clinical indicators are provided on the bottom of this form for your review Please check appropriate box(s) to clarify if the following diagnosis has been ruled in or ruled out: "SEPSIS" [ x ] Ruled in diagnosis [ x ] Continue to treat [ ] Resolved [ ] Ruled out diagnosis [ ] Cannot rule out diagnosis [ ] Other diagnosis [ ] Unable to determine In addition, please specify: Present on Admission (POA): [ x ] Yes [ ] No [ ] Unable to determine For continuity of documentation, please document condition throughout progress notes and discharge summary. Thank You. CLINICAL INDICATORS - SIGNS / SYMPTOMS / LABS ER NOTE:"SEPSIS" WBC 17.8 - 23.4 BANDS 30 LACTIC ACID 09/02: 2.7 RISKS: RIGHT MIDDLE LOBE PNEUMONIA WITH FAILED OUTPATIENT TREATMENT H/O COPD TREATMENT: IV AZITHROMYCIN (ER) IV ROCEPHIN (ER-PRESENT) IV LEVAQUIN (09/02-PRESENT) DUONEBS (ER-PRESENT) SOLU-MEDROL IV (ER-PRESENT) IV FLUIDS (ER) BLOOD CULTURES (This form is maintained as a part of the permanent medical record) 2014 [employer]. All Rights Reserved [email or web address] Office: [phone] [facility]
[2018-09-06] MEDS: Budesonide 0.5 MG/2 ML NEB NEB SCH ×2 (06:45→18:51)
[2018-09-06 06:54] LABS: #Lymphocytes 1.1 thou/uL (1.20-3.40); #Neutrophils 8.6 thou/uL (1.40-6.50); %Basophils 0.1 % (0.0-1.0); %Monocytes 9.6 % (0.0-10.0); %Neutrophils 80.2 % (42.0-75.0); Hemoglobin 15.2 g/dL (14.0-18.0); Mean Corpuscular HGB CONC 32.9 g/dL (32.0-36.0); Mean Corpuscular Hemoglobin 31.9 pg (27.0-31.0); Mean Corpuscular Volume 97.2 fL (78.0-98.0); Mean Platelet Volume 6.9 fL (7.4-10.4); Platelet Count 249 thou/uL (130-400); RBC Distribution Width 14.1 % (11.5-14.5); Red Blood Cell (RBC) Count 4.75 mill/uL (4.70-6.10); White Blood Cell (WBC) Count 10.7 thou/uL (4.8-10.8)
[2018-09-06 07:16] LABS: Anion Gap 14 mmol/L (10-20); BUN (Urea Nitrogen) 13 mg/dL (8.4-25.7); Calc. Creatinine Clearance 74 mL/min (70-130); Calcium 9.4 mg/dL (7.8-10.44); Carbon Dioxide 26 mmol/L (23-31); Chloride 101 mmol/L (98-107); Estimated GFR-MDRD Greater than 90; Glucose 118 mg/dL (83-110); Potassium 4.4 mmol/L (3.5-5.1); Sodium 137 mmol/L (136-145)
[2018-09-06] MEDS: ALPRAZolam 1 MG TAB PO SCH ×2 (08:44→21:10)
[2018-09-06] MEDS: Tamsulosin HCl 0.4 MG CAP PO SCH (08:45)
[2018-09-06] MEDS: guaiFENesin ER 600 MG TAB PO SCH ×2 (08:45→21:09)
[2018-09-06] MEDS: Nicotine 14 MG PATCH TOP SCH (08:45)
[2018-09-06] MEDS: Dutasteride 0.5 MG CAP PO SCH (08:45)
[2018-09-06] MEDS: cefTRIAXone\\ROCEPHIN 2 GM in Sodium Chloride 0.9% 100 ML IVPB SCH (11:19)
--- NOTE | 2018-09-06 14:07 | PRG ---
DATE OF SERVICE: 09/06/2018 SERVICE: Pulmonary Medicine. INTERVAL HISTORY: The patient is doing fine from respiratory standpoint. He is breathing comfortably. There has been no interval change to his condition. He indicates having a cough. He is not able to generate any sputum. Overall, he has not got much better, or worse throughout this hospital stay. PHYSICAL EXAMINATION: VITAL SIGNS: Afebrile, pulse 97, blood pressure 166/95, respirations 24, saturation 94% on room air. GENERAL: The patient is awake and alert, in no apparent distress. LUNGS: Reduced air entry with a prolonged expiratory phase. No crackles are present. With forced exhalation, polyphonic wheezing is noted. HEART: Normal rate, regular. ABDOMEN: Soft, nontender, and nondistended. Bowel sounds are positive. MUSCULOSKELETAL: No cyanosis or clubbing. There is no pitting in the bilateral lower extremities. NEUROLOGIC: Grossly nonfocal. LABORATORY DATA: Gram stain and culture of the sputum demonstrates moderate gram-positive cocci in pairs and chains. Many gram-negative rods are also noted. That being said, there were very rare white blood cells. There were multiple epithelial cells suggesting possible contamination. Influenza A and B are unremarkable. Blood cultures remain unremarkable to date. ASSESSMENT: 1. Chronic obstructive pulmonary disease with acute exacerbation. 2. Community-acquired pneumonia. 3. Left upper lobe cavitary lesion. DISCUSSION AND PLAN: We will continue antibiotics and steroids. From my perspective, the patient is approaching readiness for being discharged from the hospital. Pulmonary Critical Care will continue to follow along while he remains in-house, however. He is in line for a PET scan next week to further investigate this cavitary lesion in the left upper lobe. Job ID: [id number]
[2018-09-07 04:23] VITALS: TEMP 97.4
[2018-09-07] MEDS: Budesonide 0.5 MG/2 ML NEB NEB SCH (07:25)
[2018-09-07] MEDS ORDERED: predniSONE 20 MG TAB PO SCH (08:00)
[2018-09-07] MEDS: Tamsulosin HCl 0.4 MG CAP PO SCH (08:36)
[2018-09-07] MEDS: Nicotine 14 MG PATCH TOP SCH (08:38)
[2018-09-07] MEDS: guaiFENesin ER 600 MG TAB PO SCH (08:38)
[2018-09-07] MEDS: ALPRAZolam 1 MG TAB PO SCH (08:46)
[2018-09-07] MEDS: Dutasteride 0.5 MG CAP PO SCH (08:46)
[2018-09-07 08:48] VITALS: BP 153/79
[2018-09-07] MEDS: cefTRIAXone\\ROCEPHIN 2 GM in Sodium Chloride 0.9% 100 ML IVPB SCH (10:27)
== END 2018-09-07 10:37 | disposition home or self-care (01) | DRG 871 ==
LOC: ERS 09:36 → SURG A 12:10
PROVIDERS: ADMIT Specialist; ATTEND Specialist
DX: A41.9 Sepsis, unspecified organism (principal); J18.9 Pneumonia, unspecified organism; J96.01 Acute respiratory failure with hypoxia; J43.9 Emphysema, unspecified; R19.5 Other fecal abnormalities; Z99.81 Dependence on supplemental oxygen; F41.8 Other specified anxiety disorders; F17.210 Nicotine dependence, cigarettes, uncomplicated; E78.5 Hyperlipidemia, unspecified; E11.9 Type 2 diabetes mellitus without complications; Z79.52 Long term (current) use of systemic steroids; Z79.2 Long term (current) use of antibiotics; N40.0 Benign prostatic hyperplasia without lower urinary tract symptoms; M19.90 Unspecified osteoarthritis, unspecified site
CPT/HCPCS: 36415; 36416; 71045; 71046; 71250; 80048; 80053; 81001; 82274; 83036; 83605; 83735; 84484; 85025; 87040; 87070; 87205; 87804; 89220; 93005; 94640; 96361; 96365; 96375; J0456; J0696; J1815; J1956; J2920; J2930; J7050; J7506; J7620; J7626

== ENCOUNTER 2018-09-13 08:40 | Outpatient (CLI) | payer MEDICARE, BC ==
--- NOTE | 2018-09-13 16:14 | PET ---
PET SCAN WITH CT ATTENUATION CORRECTION: HISTORY: Brain lesion, metastatic versus primary. Pulmonary nodules. Evaluate for possible areas of primary ma lignancy. COMPARISON: None. TECHNIQUE: Patient was administered 10.9 mCi of F18-FDG. PET scan was obtained from the base of the brain to the proximal thighs. FINDINGS: HEAD/NECK: There is increased FDG avidity involving the right parotid gland with a maximum SUV of 4.5. Different ial considerations include and intraparotid lesion versus an enlarged intraparotid lymph node. Better interrogation with soft tissue neck MRI is recommended. CHEST: There is increased FDG avidity involving the anterior right atrium with a maximum SUV of 6.5. Finding s may represent physiologic distribution of radiotracer; however, given the focality of the uptake, b stormy interrogation with a cardiac echo is recommended to exclude a possible mass in the right atrium . There is no evidence of abnormal FDG avidity to suggest mediastinal lymphadenopathy. CT used for at tenuation correction demonstrates interstitial changes and reticulonodular opacities, as well as bull ous change which has been described on previous CTs. On the posterior margin of the bulla, in the lef t upper lobe, there is a small focus of FDG avidity with a maximum SUV of 2.9. There are linear opaci ties in the inferior anterior left upper lobe and right lower lobe which do not have any significant FDG avidity and have a respective maximum SUV of 1.3 and 1.2. ABDOMEN/PELVIS: No abnormal FDG localization. OSSEOUS STRUCTURES: No abnormal FDG localization. IMPRESSION: 1. Increased FDG avidity in the right parotid gland, which may represent an intraparotid lesion vers us an intraparotid lymph node. Pre and postcontrast soft tissue neck MRI is recommended. 2. No evidence of significant abnormal FDG avidity with regard to the lung parenchymal lesions as de scribed above. 3. Increased FDG avidity involving the anterior right atrium. Cardiac echo is recommended to better evaluate for possible mass within the right atrium. POS: [facility]
--- NOTE | 2018-09-15 08:28 | PFT ---
PATIENT HISTORY: HEIGHT: 68 WEIGHT: 145 SMOKER: YES HOW LON YRS PACKS PER DAY: 1 PRODUCTIVE COUGH: NO LUNG DISEASE: PHYSICIAN INTERPRETATION FINAL REPORT: Pulmonary function test shows severe reduction in Expiratory Flows and Vital Capacity no Bronchodilator Therapy given. No static wall were done. IMPRESSION: PFT is consistent with severe mixed obstructive, restrictive pulmonary impairment Chemistry Quality Control Analyst: Screen Tender: FRANCO ZAMBRANO
== END 2018-09-13 08:41 | disposition home or self-care (01) ==
LOC: CP 08:40
PROVIDERS: ATTEND Internal Medicine
DX: J44.9 Chronic obstructive pulmonary disease, unspecified (principal); R91.1 Solitary pulmonary nodule
CPT/HCPCS: 78815; 94010; A9552

== ENCOUNTER 2018-09-27 12:28 | Outpatient (CLI) | payer MEDICARE, BC ==
--- NOTE | 2018-09-27 15:54 | CT ---
CT SOFT TISSUE NECK POST CONTRAST: HISTORY: Abnormal FDG avidity in the right parotid gland. COMPARISON: None. CORRELATION: PET imaging from 09/13/2018. FINDINGS: The visualized brain parenchymal is unremarkable. The visualized orbits are also unremarkable. Adequate aeration of the visualized sinuses and mastoid air cells. The aerodigestive tract is patent. No mucosal abnormality. Limited evaluation of the oral cavity du e to extensive dental amalgam artifact. Midline fatty raphe of the tongue is preserved. Epiglottis is unremarkable. Pre-epiglottic fat is preserved. There is no prevertebral soft tissue swelling. There are varying degrees of central canal stenosis and foraminal narrowing on the basis of degenerat anderson change. Cervical spine vertebral body height is maintained. There is no fracture. Symmetric attenuation of the sternocleidomastoid muscles. Symmetric attenuation of the submandibular glands. The thyroid gland is unremarkable. No evidence of lymphadenopathy by size criteria. The great vessels of the neck are grossly patent. Evaluation limited with technique. Limited evaluation of the right parotid gland secondary to extensive beam attenuation artifact. Ther e is a partially visualized round mass along the right parotid space, adjacent to the mandible. This lesion measures approximately 1 cm and is felt to correspond to the finding noted on previous PET im aging. Further evaluation is limited due to extensive beam attenuation artifact. Barring any contraindications, pre and post contrast soft tissue neck MRI is recommended. The upper mediastinum is unremarkable. Extensive emphysematous changes involving the visualized lung parenchyma. There is a cavitary lesion with an adjacent soft tissue mass in the left upper lobe, whi ch has been reported on recent PET imaging. IMPRESSION: Limited evaluation of a mass in the right parotid space. Evaluation is limited due to extensive beam attenuation artifact, even with the administration of intravenous contrast. Pre and post contrast n lloyd MRI is recommended. POS: [facility]
== END 2018-09-27 12:29 | disposition home or self-care (01) ==
LOC: SCSCT 12:28
PROVIDERS: ATTEND Otolaryngology Plastic Surgery within the Head & Neck
DX: D49.0 Neoplasm of unspecified behavior of digestive system (principal); J34.3 Hypertrophy of nasal turbinates; J34.2 Deviated nasal septum; K11.9 Disease of salivary gland, unspecified
CPT/HCPCS: 70490

== ENCOUNTER 2018-10-21 08:15 | Day surgery (SDC) | payer MEDICARE, BC ==
[2018-10-20 12:03] VITALS: BMI 20.5
[2018-10-21] MEDS ORDERED: PROPOFOL 20 ML ONE (12:04)
[2018-10-21 13:54] LABS: #Basophils 0.1 thou/uL (0.0-0.2); #Eosinphils 0.1 thou/uL (0.0-0.7); #Lymphocytes 1.8 thou/uL (1.20-3.40); #Monocytes 0.8 thou/uL (0.11-0.59); #Neutrophils 6.4 thou/uL (1.40-6.50); %Basophils 0.8 % (0.0-1.0); %Eosinophils 0.6 % (0.0-10.0); %Monocytes 8.8 % (0.0-10.0); %Neutrophils 69.8 % (42.0-75.0); Hemoglobin 14.9 g/dL (14.0-18.0); Mean Corpuscular HGB CONC 32.1 g/dL (32.0-36.0); Mean Corpuscular Hemoglobin 31.9 pg (27.0-31.0); Mean Corpuscular Volume 99.5 fL (78.0-98.0); Mean Platelet Volume 6.3 fL (7.4-10.4); Platelet Count 268 thou/uL (130-400); RBC Distribution Width 14.8 % (11.5-14.5); Red Blood Cell (RBC) Count 4.67 mill/uL (4.70-6.10); White Blood Cell (WBC) Count 9.2 thou/uL (4.8-10.8)
[2018-10-21 14:00] LABS: INR-International Normal Ratio 1.1; PTT 28.7 SEC (22.9-36.1); Prothrombin Time 14.3 SEC (12.0-14.7)
--- NOTE | 2018-10-21 14:16 | OP ---
DATE OF PROCEDURE: 10/21/2018 PREPROCEDURE DIAGNOSIS: Possible right atrial mass. PROCEDURES PERFORMED: Transesophageal echo. The Anesthesiology Department provided sedation for the patient. Please see their notes for details. DESCRIPTION OF PROCEDURE: After adequate sedation was achieved, the transesophageal probe was inserted into the mouth and into the esophagus, and multiplanar views were then obtained. Left ventricle is normal size with normal systolic function, EF estimated at 50% to 55%. Left atrium is mildly dilated. Left atrial appendage is small appendage with no mass or thrombus. Right atrium is normal size with no masses or thrombus. 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 The right ventricle is normal size with normal systolic function. The aortic valve is mildly sclerotic, but opens well. No stenosis. Mild to moderate aortic insufficiency. Tricuspid valve is structurally normal. There is mild TR. Mitral valve is structurally normal. There is mild MR. Pulmonary valve is structurally normal. There is mild PI. There is a very tiny pleural effusion posterior to the right atrium. Inside the pleural fluid, there is a fibrous flailing mass, which is most likely the mass seen on the transthoracic imaging. Interatrial septum has a small patent foramen ovale confirmed with agitated saline study. CONCLUSIONS: 1. Normal systolic function, ejection fraction at 50% to 55%. 2. Left atrial enlargement. 3. Interatrial septum with a small patent foramen ovale. 4. Mild mitral regurgitation, mild tricuspid regurgitation, and mild pulmonary insufficiency. 5. Mild to moderate aortic insufficiency. 6. Small pleural effusion with a small amount of fibrous flailing tissue inside the effusion. 7. No evidence of mass or thrombus inside the myocardial branett. 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 Job ID: [id number]
[2018-10-21 14:17] LABS: Anion Gap 13 mmol/L (10-20); BUN (Urea Nitrogen) 13 mg/dL (8.4-25.7); Calc. Creatinine Clearance 71 mL/min (70-130); Calcium 9.2 mg/dL (7.8-10.44); Carbon Dioxide 23 mmol/L (23-31); Chloride 106 mmol/L (98-107); Estimated GFR-MDRD Greater than 90; Glucose 87 mg/dL (83-110); Potassium 4.2 mmol/L (3.5-5.1); Sodium 138 mmol/L (136-145)
[2018-10-21] MEDS ORDERED: PROPOFOL 200 MG/20 ML VIAL ONE (16:07)
== END 2018-10-21 14:44 | disposition home or self-care (01) ==
LOC: CCL 08:15
PROVIDERS: ATTEND Internal Medicine Cardiovascular Disease
PROC: B24BZZ4 Ultrasonography of Heart with Aorta, Transesophageal (ICD-10-PCS; principal; 2018-10-21)
DX: I51.89 Other ill-defined heart diseases (principal); Q21.1 Atrial septal defect; I35.1 Nonrheumatic aortic (valve) insufficiency; I37.1 Nonrheumatic pulmonary valve insufficiency; J90 Pleural effusion, not elsewhere classified; E78.5 Hyperlipidemia, unspecified; N40.0 Benign prostatic hyperplasia without lower urinary tract symptoms; F41.9 Anxiety disorder, unspecified; J44.9 Chronic obstructive pulmonary disease, unspecified; E11.9 Type 2 diabetes mellitus without complications; M19.90 Unspecified osteoarthritis, unspecified site; Z87.891 Personal history of nicotine dependence; Z79.1 Long term (current) use of non-steroidal anti-inflammatories (NSAID); Z79.84 Long term (current) use of oral hypoglycemic drugs; Z79.899 Other long term (current) drug therapy
CPT/HCPCS: 36415; 36416; 80048; 85025; 85610; 85730; 93312; J2704

== ENCOUNTER 2018-10-31 07:32 | Day surgery (SDC) | payer MEDICARE, BC ==
[2018-10-28 12:28] VITALS: BMI 21.9
[2018-10-31] MEDS ORDERED: Lidocaine 4% PF 5 ML AMP NEB SCH (08:30)
[2018-10-31] MEDS ORDERED: Famotidine/PF 20 mg/2ml Vial ONE (10:06)
[2018-10-31] MEDS ORDERED: Fentanyl 100 MCG/2 ML VIAL ONE (10:06)
--- NOTE | 2018-10-31 13:13 | OP ---
DATE OF PROCEDURE: 10/31/2018 SERVICE: Pulmonary Medicine. PROCEDURES PERFORMED: Fiberoptic bronchoscopy with; 1. Visual airway inspection. 2. Endobronchial brush of the left upper lobe. 3. Bronchoalveolar lavage of the left upper lobe. 4. Transbronchial biopsies of the left upper lobe. PREPROCEDURE DIAGNOSIS: Pulmonary cavity. POSTPROCEDURE DIAGNOSIS: 1. Pulmonary cavity. MEDICATIONS USED: For list of medications, please refer to Anesthesia documentation. PREANESTHESIA ASSESSMENT: H and P had been performed. The patient's medications and allergies were reviewed. CONSENT: Informed consent was obtained after discussing risks, benefits, and rationale for performing the procedure as well as alternative options. DESCRIPTION OF PROCEDURE: A time-out was performed identifying the correct procedure and patient with name and date of . A diagnostic fiberoptic bronchoscope was introduced through the 8.0 endotracheal tube. The bronchoscope was advanced into the trachea where a tracheobronchial tree inspection was carried out with clear identification of the right upper lobe, right middle lobe, right lower lobe, left upper lobe, lingula, and left lower lobe. Anatomy was normal to the segmental level. Bronchoalveolar lavage was obtained from the left upper lobe. Endobronchial brushings and transbronchial biopsies were also obtained from the left upper lobe under fluoroscopic guidance. Hemostasis was verified and the bronchoscope was subsequently removed from the patient. Postprocedure fluoroscopy did not demonstrate a pneumothorax. FINDINGS: 1. Secretions were minimal but quite thick and tenacious. They had a pale yellow color. 2. No endobronchial disease was identified. 3. Pamela is sharp. SPECIMENS OBTAINED: 1. Pathology for BAL, brushings, and transbronchial biopsies. 2. Microbiology for BAL. COMPLICATIONS: None. ESTIMATED BLOOD LOSS: 5 mL. FLUOROSCOPY TIME: Less than 4 minutes. DISPOSITION: The patient will be discharged home with postprocedure instructions. He will return to clinic as previously directed. Job ID: [id number] [facility]
[2018-10-31] MEDS ORDERED: Ondansetron PF 4 MG/2 ML Vial ONE (15:28)
[2018-10-31] MEDS ORDERED: Succinylcholine Chloride 20 MG/ML 10 ml SYRINGE FS ONE (15:28)
[2018-10-31] MEDS ORDERED: Lidocaine 1% PF 5 ML VIAL ONE (15:28)
[2018-10-31] MEDS ORDERED: Rocuronium Bromide 10 MG/ML (10ML VIAL) ONE (15:28)
[2018-10-31] MEDS ORDERED: PROPOFOL 200 MG/20 ML VIAL ONE (15:28)
== END 2018-10-31 14:30 | disposition home or self-care (01) ==
LOC: SDC 07:32
PROVIDERS: ATTEND Internal Medicine
PROC: 0B9G8ZX Drainage of Left Upper Lung Lobe, Via Natural or Artificial Opening Endoscopic, Diagnostic (ICD-10-PCS; principal; 2018-10-31)
PROC: 0BDG8ZX Extraction of Left Upper Lung Lobe, Via Natural or Artificial Opening Endoscopic, Diagnostic (ICD-10-PCS; 2018-10-31)
PROC: 0BDG8ZX Extraction of Left Upper Lung Lobe, Via Natural or Artificial Opening Endoscopic, Diagnostic (ICD-10-PCS; 2018-10-31)
DX: J98.4 Other disorders of lung (principal); J85.0 Gangrene and necrosis of lung; J44.9 Chronic obstructive pulmonary disease, unspecified; N40.0 Benign prostatic hyperplasia without lower urinary tract symptoms; M19.90 Unspecified osteoarthritis, unspecified site; F41.9 Anxiety disorder, unspecified; F17.210 Nicotine dependence, cigarettes, uncomplicated; E78.5 Hyperlipidemia, unspecified; Z79.84 Long term (current) use of oral hypoglycemic drugs; Z79.899 Other long term (current) drug therapy
CPT/HCPCS: 87070; 87102; 87116; 87205; 87206; 88112; 88305; 88312; J0131; J2001; J2405; J2704; J3010; J7620; S0028

== ENCOUNTER 2018-11-30 15:15 | Outpatient (CLI) | payer MEDICARE, BC ==
--- NOTE | 2018-11-30 16:23 | RAD ---
AP PELVIS: Date: 11/30/18 HISTORY: Sacrococcygeal disorder. Patient states that he fell last night, with injury to tailbone. FINDINGS: There are mild symmetric degenerative changes at both hips. Pelvis appears intact. IMPRESSION: No acute abnormality identified. POS: [facility]
--- NOTE | 2018-11-30 16:24 | RAD ---
SACRUM AND COCCYX 3 VIEWS: Date: 11/30/18 HISTORY: Fall with injury to sacrum. Sacrococcygeal disorder is given as reason. FINDINGS: The sacrum appears intact. SI joints are symmetric with mild degenerative sclerosis. Coccyx appears i ntact on the lateral view. No acute fracture identified. IMPRESSION: No evidence of acute fracture. POS: [facility]
== END 2018-11-30 15:16 | disposition home or self-care (01) ==
LOC: BICRAD 15:15
PROVIDERS: ATTEND Specialist
DX: M53.3 Sacrococcygeal disorders, not elsewhere classified (principal); M54.9 Dorsalgia, unspecified
CPT/HCPCS: 72170; 72220

== ENCOUNTER 2020-02-07 08:42 | Outpatient (CLI) | payer MEDICARE, BC ==
--- NOTE | 2020-02-07 10:19 | CT ---
CT CHEST WITHOUT CONTRAST: INDICATION: COPD. History of pneumonia. Followup. COMPARISON: Comparison is made to the prior chest CT of 09/02/2018. FINDINGS: There are severe changes of COPD with hyperexpansion, intralobular emphysema, and early bullous forma tion in the upper lobes. There are several small bullae in the medial left apical region, one of whi ch is thick-walled and associated with parenchymal stranding. These appear stable. There is stranding with an associated nodular density in the left apex with a nodular density measuri ng approximately 1.0 cm in the coronal plane. This nodularity appears stable. There is linear atelectasis an stranding in the lingula which appears stable. Left lower lobe shows no acute process. In the right lung, there is apical pleural thickening with some nodularity which is stable. There is mild stranding in the anterior right middle lobe. This has improved since the prior study i ndicating resolution of an inflammatory process since that study. The right lower lobe is clear of infiltrate today. The parenchymal infiltrate seen in the right lowe r lobe on the prior study has resolved. There is stranding in both lower lobes which is stable. Mediastinum unremarkable with nonspecific lymph nodes. Images through the upper abdomen reveal a 2 mm nonobstructing calculus in the lower pole collecting s tructures of the right kidney. Aorta is densely calcified without evidence of aneurysm. Review of the osseous structures reveals a new compression deformity involving the L2 vertebra when c ompared to the prior study of 09/02/2018. There is mild anterior wedging and superior end plate compre ssion of this vertebra since the prior exam. There is a small node in the superior end plate which w as not present previously indicating an acute Schmorl node development with mild associated compressi on since that study. IMPRESSION: 1. There are chronic lung parenchymal changes as described above. No evidence of acute infiltrate. The findings appear stable as described. 2. A new compression fracture has occurred at the L2 vertebra when compared to the prior study as de scribed above. POS: [facility]
== END 2020-02-07 08:43 | disposition home or self-care (01) ==
LOC: BICCT 08:42
PROVIDERS: ATTEND Internal Medicine Critical Care Medicine
DX: J15.8 Pneumonia due to other specified bacteria (principal); S32.029A Unspecified fracture of second lumbar vertebra, initial encounter for closed fracture
CPT/HCPCS: 71250

== ENCOUNTER 2020-08-06 11:41 | Inpatient (IN) | payer MEDICARE, BC ==
[~2020-08-06 11:41] MED LIST: Iopamidol-370 76% 500 ML 1 ML ONE
--- NOTE | 2020-08-06 12:17 | RAD ---
XR Chest 1 View Portable HISTORY: Cough COMPARISON: 09/03/2018 FINDINGS: The heart size is normal. The aorta is tortuous. There there are patchy infiltrates in the right lower lung. No pneumothoraces or large effusions are seen. IMPRESSION: Findings are suspicious for right basilar pneumonia.
[2020-08-06 12:19] LABS: Hemoglobin 16.2 g/dL (14.0-18.0); Mean Corpuscular HGB CONC 31.3 g/dL (32.0-36.0); Mean Corpuscular Hemoglobin 32.8 pg (27.0-31.0); Mean Platelet Volume 7.4 fL (7.4-10.4); Platelet Count 311 thou/uL (130-400); RBC Distribution Width 13.4 % (11.5-14.5); Red Blood Cell (RBC) Count 4.93 mill/uL (4.70-6.10)
[2020-08-06] MEDS ORDERED: cefTRIAXone\\ROCEPHIN 1 GM VIAL ONE (12:23)
[2020-08-06] MEDS ORDERED: Dexamethasone 10 MG/ML VIAL ONE (12:23)
[2020-08-06] MEDS ORDERED: Azithromycin 250 MG TAB ONE (12:23)
[2020-08-06] MEDS ORDERED: Azithromycin 500 MG VIAL ONE (12:24)
[2020-08-06 12:31] LABS: Band 3 % (5-11); Lymphocytes 3 % (21-51); MDiff Complete? YES; Macrocytosis SLIGHT = 6-15 cells (100X) (0-5/hpf); Monocytes 8 % (0-10); Neutrophil 79 % (42-75); Platelet Morphology Comment Appears Adequate; Polychromasia SLIGHT = 2-3 cells (100X) (0-2/hpf); Reactive Lymphocytes 7 % (0-10)
[2020-08-06 12:55] LABS: Bacteria/HPF None Seen HPF (None Seen); Bilirubin Negative (Negative); Blood, Urine 1+ (Negative); Clarity Clear (Clear); Glucose, Urine (Dipstick) Normal (Negative); Ketone, Urine Negative (Negative); Leukocyte 25 Leu/uL (Negative); Nitrite Negative (Negative); Protein, Urine (Dipstick) 30 mg/dL (Neg-Trace); RBC/HPF 0-3 HPF (0-3); Specific Gravity, Urine 1.019 (1.002-1.036); Squamous Epithelial 0-3 HPF (0-3); Urobilinogen Normal mg/dL (Less than 2); WBC/HPF 0-3 HPF (0-3); pH, Urine 5.5 (5.0-9.0)
[2020-08-06 13:04] LABS: CKMB 14.7 ng/mL (0-6.6)
[2020-08-06] MEDS ORDERED: Aspirin 300 MG Suppository ONE (13:20)
[2020-08-06 13:41] LABS: ALT (SGPT) 36 U/L (8-55); AST (SGOT) 77 U/L (5-34); Albumin 3.5 g/dL (3.4-4.8); Alkaline Phosphatase 91 U/L (40-110); Anion Gap 23 mmol/L (10-20); BUN (Urea Nitrogen) 27 mg/dL (8.4-25.7); Bilirubin, Total 0.8 mg/dL (0.2-1.2); Calc. Creatinine Clearance 0 mL/min (70-130); Calcium 9.2 mg/dL (7.8-10.44); Carbon Dioxide 26 mmol/L (23-31); Chloride 93 mmol/L (98-107); Globulin 3.7 g/dL (2.4-3.5); Glucose 107 mg/dL (83-110); Magnesium 2.2 mg/dL (1.6-2.6); Potassium 3.9 mmol/L (3.5-5.1); Protein, Total 7.2 g/dL (5.8-8.1); Sodium 138 mmol/L (136-145)
[2020-08-06 13:56] LABS: SARS-CoV-2 NAA Rapid Test Not Detected (NotDetected)
--- NOTE | 2020-08-06 14:39 | CT ---
Head CT without and with contrast 08/06/2020: COMPARISON: 04/07/2018 HISTORY: Failure to thrive, altered mental status TECHNIQUE: Axial CT imaging at 5 mm intervals from vertex through skull base without and with contras t FINDINGS: There is a nonspecific hyperdense focus in the lateral aspect of the left frontal lobe on a xial image 5, unchanged when compared to the 2018 exam. Stability since the prior exam suggests a subcentimeter left frontal lobe cavernoma. There is mild adjacent linear enhancement, likely vascular in nature. No midline shift or mass effect. No ventricular enlargement. The postcontrast imaging demonstrates no acute abnormal enhancement. This study is not tailored to evaluate the arterial structures. 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 No intracranial hemorrhage.
--- NOTE | 2020-08-06 14:58 | CT ---
CT ABDOMEN AND PELVIS PERFORMED WITH INTRAVENOUS CONTRAST ENHANCEMENT: 08/06/20 HISTORY: Left lower quadrant abdomen pain. There is a right lower lobe pneumonic appearing process. There is s evere chronic appearing changes also seen in the lung bases. The liver shows no focal abnormalities other than the possible small cyst in the dome of the liver. S ome minimal prominence to the intrahepatic biliary duct fairly nonspecific. The gallbladder is not di stended. The spleen is small. The pancreas region appears unremarkable. Right and left adrenal glands and right and left kidneys are normal in size. Punctate nonobstructing lower pole right renal calculus. Atherosclerotic change of the abdominal aorta which is mildly ectati c. No periaortic or mesenteric adenopathy. Moderate amount of stool seen within the right and transve rse colon. CT OF PELVIS PERFORMED WITH CONTRAST ENHANCEMENT: Moderate amount of stool present in the rectosigmoid region. There is no pelvic lymphadenopathy or ma ss. Prostate appears somewhat enlarged. I do not see any definite inflammatory change. IMPRESSION: 1. Right lower lobe pneumonia. 2. Nonobstructing right renal calculus. 3. Findings that would suggest an element of constipation. 4. Diffuse bone demineralization. Compression changes superior end plate of L2 appear chronic. POS: [facility]
[2020-08-06 16:22] LABS: Troponin I 0.206 ng/mL (< 0.028)
[2020-08-06 19:27] LABS: Lactic Acid 2.1 mmol/L (0.5-2.2)
[2020-08-06 19:37] LABS: Troponin I 0.231 ng/mL (< 0.028)
[2020-08-06] MEDS ORDERED: Acetaminophen 650 MG Suppository PR PRN (20:29)
[2020-08-06] MEDS ORDERED: Ondansetron PF 4 MG/2 ML Vial IVP PRN (20:29)
[2020-08-06] MEDS ORDERED: Lorazepam 2 MG/ML VIAL SLOW IVP PRN (20:30)
[2020-08-06] MEDS: cefTRIAXone\\ROCEPHIN 2 GM in Sodium Chloride 0.9% 100 ML IVPB SCH (21:02)
[2020-08-06] MEDS: Sodium Chloride 0.9% 1,000 ML IV SCH (21:02)
[2020-08-06] MEDS: Azithromycin 500 MG in Sodium Chloride 0.9% 250 ML 250 ML IVPB SCH (22:19)
--- NOTE | 2020-08-07 01:00 | HP ---
CHIEF COMPLAINT: Right lower lobe pneumonia with sepsis. HISTORY OF PRESENT ILLNESS: The patient is an 80-year-old male who for the past 3 weeks has been steadily diminishing in his functional ability with increasing weakness, mainly denied cough or fever. Approximately a week prior to this admission, he had come to see Dr. Lau in the office and was noted to be getting weaker and weaker on examination. He even fell asleep during the office appointment, but was in no acute distress, especially nothing respiratory, febrile, or no complaints of pain. No coughing was noted. However, he continued to weaken over the next several days to finally, on the day of admission, he was not able to get out of bed, not able to walk, and then the son called EMS. They arrived by helicopter, found him to be breathing on his own, but unresponsive and transported him to [facility] for further evaluation. He was noted to be tachycardic, tachypneic on the way and felt palpably febrile. There had been no vomiting. No diarrhea. No history of COVID exposure. In [facility]'s ER, he was quickly determined to be COVID negative, and chest x-ray revealed a right lower lobe pneumonia. Due to the altered mental status, CT of the head was performed. It was unremarkable for any acute findings. CT of the abdomen also did not show any acute findings but did confirm the right lower lobe pneumonia. Dr. Lau was contacted for hospital admission. Cultures had already been taken due to the sepsis protocol, and antibiotics begun. Dr. Lau came to see the patient while in room 12 in the ER and evaluated the patient and prepared for the paperwork for admission. PAST MEDICAL HISTORY: Significant for borderline type 2 diabetes, severe anxiety disorder, hyperlipidemia, osteoarthritis diffusely, severe longstanding COPD of which the patient only recently has quit smoking due to his inability to smoke. He has had a history of pleural effusion and has seen Dr. Stewart for this in the past. He also has severe presbycusis and BPH as well as chronic insomnia. He has also had a GI bleed in the past. PAST SURGICAL HISTORY: Includes left inguinal herniorrhaphy, appendectomy in 2010 and hemilaminectomy in 2014. 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 SOCIAL HISTORY: He is , retired, chronically smokes but does not drink and has only quit smoking recently due to his inability to smoke. His who has lung cancer continues to smoke. ALLERGIES: HE HAS NO KNOWN DRUG ALLERGIES. PSYCHIATRIC HISTORY: No hospitalizations. However, he does have severe anxiety. MEDICATIONS ON ADMISSION: 1. Metformin 500 mg once a day. 2. Alprazolam 1 mg b.i.d. 3. Donepezil 5 mg recently started at bedtime. 4. Albuterol inhaler p.r.n. with furosemide 40 mg q.a.m. p.r.n. edema. REVIEW OF SYSTEMS: Unobtainable at this time since the patient is unresponsive to questions. PHYSICAL EXAMINATION: VITAL SIGNS: At the time of admission, the blood pressure on arrival was 132/71, pulse 97, respirations 38, temperature 98.0 with an O2 saturation of 95% on 4 L. GENERAL: This is an elderly, cachectic male, who is not responsive to the examiner at this time. HEENT: Normocephalic, atraumatic with temporal wasting and sunken eyes. TMs, nares clear. Pharynx somewhat dry. Pupils at 2 mm with diminished reactivity bilaterally and arcus senilis bilaterally. Conjunctivae are nonicteric. NECK: Somewhat stiff. No adenopathy noted. No bruits noted. No mass noted. CHEST: Has audible rales in the right lower lobe and just simply diminished breath sounds throughout the rest of the lung. HEART: Regular rate and rhythm. ABDOMEN: Scaphoid without organomegaly. : Normal male. Reyna in place. EXTREMITIES: With muscular wasting in all extremities. SKIN: With poor turgor. No acute lesions noted. NEUROLOGICAL STATUS: Unable to assess at this time due to lack of responsiveness. LABORATORY DATA: [place] [address], hemoglobin 16.2, hematocrit 51.8, platelets at 311 with 79 segs, 3 bands, and 3 lymphocytes. He is COVID negative. Urinalysis shows 30 protein, 25 on the esterase, and 1+ blood, otherwise unremarkable. Sodium is 138, potassium 3.9, chloride 93, CO2 of 26, BUN 27, creatinine 0.79 with a GFR greater than 90, glucose 107. Lactic acid is elevated at 4.5. This was at 1430 but by 1904, did come down to 2.1. Calcium 9.2, magnesium 2.2. AST 77, ALT 36, ALT 91. Demand ischemic elevations of troponin I with elevated CK-MB of 14.7. BNP elevated at 313. The chest x-ray as previously mentioned shows right lower lobe infiltrate. ASSESSMENT ON ADMISSION: 1. Sepsis. 2. Right lower lobe pneumonia as reason for sepsis. 3. Severe chronic obstructive pulmonary disease. 4. Type 2 elevations of troponin I. PLAN: He will be transferred into [facility]. Antibiotics will be continued. Supportive care with scheduled neb treatments was performed. Dr. 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 Consultation with the indicates that they would like to have him a full code at present, but should he be intubated, they do not entertain keeping him long on the ventilator should he not improve quickly. The patient will be serially re-evaluated. The [id number]-jg-[id number] time of the patient was 45 minutes, and further time filling paperwork and writing orders came to 1 hour. Job ID: [id number]
[2020-08-07 04:35] LABS: Anion Gap 15 mmol/L (10-20); BUN (Urea Nitrogen) 23 mg/dL (8.4-25.7); Calc. Creatinine Clearance 68 mL/min (70-130); Calcium 9.1 mg/dL (7.8-10.44); Carbon Dioxide 36 mmol/L (23-31); Chloride 97 mmol/L (98-107); Glucose 127 mg/dL (83-110); Potassium 3.6 mmol/L (3.5-5.1); Sodium 144 mmol/L (136-145)
[2020-08-07 05:44] LABS: Band 15 % (5-11); Hemoglobin 14.5 g/dL (14.0-18.0); Lymphocytes 4 % (21-51); MDiff Complete? YES; Mean Corpuscular HGB CONC 31.3 g/dL (32.0-36.0); Mean Corpuscular Hemoglobin 32.4 pg (27.0-31.0); Mean Platelet Volume 6.6 fL (7.4-10.4); Monocytes 5 % (0-10); Neutrophil 76 % (42-75); Platelet Count 306 thou/uL (130-400); RBC Distribution Width 13.3 % (11.5-14.5); Red Blood Cell (RBC) Count 4.47 mill/uL (4.70-6.10); White Blood Cell (WBC) Count 21.7 thou/uL (4.8-10.8)
[2020-08-07] MEDS: Sodium Chloride 0.9% 1,000 ML IV SCH ×2 (05:45→17:39)
[2020-08-07] MEDS: Enoxaparin Sodium 40 MG/0.4 ML SYRINGE SC SCH (10:15)
[2020-08-07] MEDS: cefTRIAXone\\ROCEPHIN 2 GM in Sodium Chloride 0.9% 100 ML IVPB SCH (21:04)
[2020-08-07] MEDS: Azithromycin 500 MG in Sodium Chloride 0.9% 250 ML 250 ML IVPB SCH (22:33)
[2020-08-08] MEDS: Sodium Chloride 0.9% 1,000 ML IV SCH ×3 (02:10→18:44)
[2020-08-08 07:33] LABS: Hemoglobin A1c 6.1 % (4.0-6.0)
[2020-08-08 08:39] LABS: Hemoglobin 14.4 g/dL (14.0-18.0); Mean Corpuscular HGB CONC 32.3 g/dL (32.0-36.0); Mean Corpuscular Hemoglobin 33.9 pg (27.0-31.0); Mean Platelet Volume 6.3 fL (7.4-10.4); Platelet Count 291 thou/uL (130-400); RBC Distribution Width 13.2 % (11.5-14.5); Red Blood Cell (RBC) Count 4.24 mill/uL (4.70-6.10); White Blood Cell (WBC) Count 16.2 thou/uL (4.8-10.8)
[2020-08-08 08:54] LABS: BUN (Urea Nitrogen) 19 mg/dL (8.4-25.7); Calc. Creatinine Clearance 71 mL/min (70-130); Calcium 8.7 mg/dL (7.8-10.44); Glucose 122 mg/dL (83-110)
[2020-08-08 08:55] LABS: #Lymphocytes 0.9 thou/uL (1.20-3.40); #Monocytes 1.2 thou/uL (0.11-0.59); #Neutrophils 14.1 thou/uL (1.40-6.50); %Basophils 0.1 % (0.0-1.0); %Eosinophils 0.1 % (0.0-10.0); %Lymphocytes 5.4 % (21.0-51.0); %Monocytes 7.4 % (0.0-10.0); MDiff Complete? YES; Macrocytosis SLIGHT = 6-15 cells (100X) (0-5/hpf); Platelet Morphology Comment Appears Adequate; Poikilocytosis SLIGHT = 6-15 cells (100X) (0-5/hpf)
[2020-08-08 09:03] LABS: Anion Gap 15 mmol/L (10-20); Carbon Dioxide 35 mmol/L (23-31); Chloride 104 mmol/L (98-107); Potassium 3.5 mmol/L (3.5-5.1); Sodium 150 mmol/L (136-145)
[2020-08-08] MEDS: Enoxaparin Sodium 40 MG/0.4 ML SYRINGE SC SCH (09:53)
--- NOTE | 2020-08-08 10:06 | RAD ---
CHEST 1 VIEW: Date: 08/08/2020 HISTORY: Cough, pneumonia. COMPARISON: 08/06/2020 study. FINDINGS: Heart size within normal limits. There are chronic lung changes seen. Infiltrative changes in the rig ht base are similar to the prior exam. IMPRESSION: Stable exam. POS: [facility]
[2020-08-08] MEDS: cefTRIAXone\\ROCEPHIN 2 GM in Sodium Chloride 0.9% 100 ML IVPB SCH (20:54)
[2020-08-08] MEDS: Azithromycin 500 MG in Sodium Chloride 0.9% 250 ML 250 ML IVPB SCH (21:33)
[2020-08-09 01:27] LABS: #Monocytes 1.1 thou/uL (0.11-0.59); #Neutrophils 12.8 thou/uL (1.40-6.50); %Basophils 0.2 % (0.0-1.0); %Eosinophils 0.3 % (0.0-10.0); %Lymphocytes 6.7 % (21.0-51.0); %Monocytes 7.4 % (0.0-10.0); %Neutrophils 85.5 % (42.0-75.0); Mean Corpuscular Hemoglobin 33.8 pg (27.0-31.0); Mean Platelet Volume 6.7 fL (7.4-10.4); Platelet Count 278 thou/uL (130-400); RBC Distribution Width 13.3 % (11.5-14.5); Red Blood Cell (RBC) Count 4.15 mill/uL (4.70-6.10)
[2020-08-09] MEDS ORDERED: Metoprolol Tartrate 5 MG/5 ML VIAL ONE (01:28)
[2020-08-09] MEDS ORDERED: Aspirin 300 MG Suppository ONE (01:28)
[2020-08-09] MEDS ORDERED: Diltiazem HCl 125 MG, Admixture Fee 1 EACH in Sodium Chloride 0.9% 100 ML IVPB SCH (01:30)
--- NOTE | 2020-08-09 01:36 | PDOC.BPN ---
- Brief Progress Note Code donnell called around 01:10. Went to patient's bedside with Dr. Melgar. Patient was found to be tachy in the 160-170s with increasing O2 requirement. Satting 100% on 6L NC. EKG showed A fib with RVR. Patient is sleepy but arousable. Physical exam revealed A fib with RVR and clear breath sounds b/l. [place] labs ordered along with Dilt gtt. Will follow up labs. Nursing staff contacting Dr. Lau, primary physician, on case for recommendations. Recommend CTA to rule out PE if increasing/persistent O2 requirement when heart rate no rmalizes. ADDENDUM: Dr Lau contacted by nursing and he ordered Metoprolol. Will d/c Dilt gtt
[2020-08-09 01:48] LABS: ALT (SGPT) 37 U/L (8-55); AST (SGOT) 47 U/L (5-34); Albumin 2.9 g/dL (3.4-4.8); Alkaline Phosphatase 67 U/L (40-110); Anion Gap 14 mmol/L (10-20); BUN (Urea Nitrogen) 17 mg/dL (8.4-25.7); Bilirubin, Total 0.3 mg/dL (0.2-1.2); Calc. Creatinine Clearance 82 mL/min (70-130); Calcium 7.9 mg/dL (7.8-10.44); Carbon Dioxide 32 mmol/L (23-31); Chloride 109 mmol/L (98-107); Globulin 2.4 g/dL (2.4-3.5); Glucose 127 mg/dL (83-110); Magnesium 2.3 mg/dL (1.6-2.6); Potassium 3.7 mmol/L (3.5-5.1); Protein, Total 5.3 g/dL (5.8-8.1); Sodium 151 mmol/L (136-145)
[2020-08-09 01:51] LABS: Troponin I 0.138 ng/mL (< 0.028)
[2020-08-09 03:53] LABS: #Lymphocytes 1.1 thou/uL (1.20-3.40); #Monocytes 1.1 thou/uL (0.11-0.59); #Neutrophils 11.9 thou/uL (1.40-6.50); %Basophils 0.2 % (0.0-1.0); %Eosinophils 0.1 % (0.0-10.0); %Lymphocytes 7.4 % (21.0-51.0); %Monocytes 7.8 % (0.0-10.0); %Neutrophils 84.5 % (42.0-75.0); Hemoglobin 13.9 g/dL (14.0-18.0); Mean Corpuscular HGB CONC 31.2 g/dL (32.0-36.0); Mean Corpuscular Hemoglobin 33.1 pg (27.0-31.0); Mean Platelet Volume 6.5 fL (7.4-10.4); Platelet Count 265 thou/uL (130-400); RBC Distribution Width 13.1 % (11.5-14.5); Red Blood Cell (RBC) Count 4.19 mill/uL (4.70-6.10); White Blood Cell (WBC) Count 14.1 thou/uL (4.8-10.8)
[2020-08-09 04:16] LABS: Anion Gap 12 mmol/L (10-20); BUN (Urea Nitrogen) 16 mg/dL (8.4-25.7); Calc. Creatinine Clearance 81 mL/min (70-130); Calcium 8.2 mg/dL (7.8-10.44); Carbon Dioxide 35 mmol/L (23-31); Chloride 109 mmol/L (98-107); Glucose 125 mg/dL (83-110); Potassium 3.5 mmol/L (3.5-5.1); Sodium 152 mmol/L (136-145)
--- NOTE | 2020-08-09 09:21 | RAD ---
PORTABLE CHEST: HISTORY: Pneumonia and sepsis. COMPARISON: 08/06/2020 exam. FINDINGS: Heart size is within normal limits. There are atherosclerotic changes of the aorta. There is some w orsening to the right lower lobe parenchymal lung changes as compared to the 08/06 exam. Also, perhap s slightly progressed as compared to the more recent 08/08 study. IMPRESSION: Slight increased prominence to the right lower lobe parenchymal lung change. POS: [facility]
[2020-08-09] MEDS: Enoxaparin Sodium 40 MG/0.4 ML SYRINGE SC SCH (09:37)
[2020-08-09] MEDS: Sodium Chloride 0.9% 1,000 ML IV SCH ×2 (09:37→09:55)
[2020-08-09] MEDS: Aspirin 300 MG Suppository PR SCH (09:40)
[2020-08-09] MEDS: Aspirin Chewable 81 MG TAB PO SCH (09:40)
[2020-08-09 10:03] LABS: CKMB 2.2 ng/mL (0-6.6)
[2020-08-09] MEDS: Sodium Chloride 0.45% 1,000 ML IV SCH ×2 (13:32→20:29)
[2020-08-09] MEDS ORDERED: Digoxin 0.5 MG/2 ML AMP SLOW IVP SCH ×2 (14:30)
[2020-08-09] MEDS ORDERED: Metoprolol Tartrate 5 MG/5 ML VIAL IVP SCH (17:00)
[2020-08-09 17:08] LABS: Troponin I 0.103 ng/mL (< 0.028)
--- NOTE | 2020-08-09 18:26 | CON ---
DATE OF CONSULTATION: 08/09/2020 CONSULTING PHYSICIAN: Kyree Lau MD HISTORY OF PRESENT ILLNESS: This is an 80-year-old male with past medical history of type 2 diabetes, severe anxiety, hyperlipidemia, osteoarthritis of his knees bilaterally, COPD, long-time nicotine dependence, BPH, recent diagnosis of dementia, who presents to the ER following a 3-week history of progressive weakness. His weakness progressed to the point of not being able to walk or get out of bed, prompting a call to EMS. In the ER, he was found to be tachycardiac and tachypneic along with a white count of 25,000. He was deemed to be COVID negative. During his hospitalization, the patient had overnight episode of atrial flutter and was started on diltiazem. This atrial flutter prompted the consult. In addition, there was a computer read of one of the EKGs that showed STEMI. However, this was not the case and troponins do not reflect STEMI. PAST MEDICAL HISTORY: Type 2 diabetes, anxiety, hyperlipidemia, OA, COPD, BPH, history of GI bleed in the past. PAST SURGICAL HISTORY: Left inguinal hernia repair, appendectomy, pulmonary lung biopsy. SOCIAL HISTORY: Greater than [id number] history of smoking. FAMILY HISTORY: Noncontributory. ALLERGIES: NO KNOWN DRUG ALLERGIES. MEDICATION LIST/HOME MEDICATIONS: 1. Albuterol inhaler. 2. Alprazolam 1 mg p.o. b.i.d. 3. Donepezil 5 mg p.o. at bedtime. 4. Avodart 0.5 mg p.o. daily. 5. Vytorin 10 mg/20 mg p.o. q.p.m. 6. Furosemide 40 mg p.o. daily. 7. Mucinex p.o. b.i.d. as needed. 8. Metformin 500 mg p.o. a.m. 9. Ramipril 10 mg p.o. daily. 10. Stiolto inhaler two twist daily. PHYSICAL EXAMINATION: VITAL SIGNS: Heart rate 137, blood pressure 136/64, respiratory rate 28, O2 saturation 96% on 3 L, and temperature 97.6. GENERAL: Frail gentleman, in no acute distress. NECK: Shows no JVD. LUNGS: Right lower lobe rhonchi consistent with chest x-ray with coarse radiation from upper airway. HEART: Tachycardic. Unable to appreciate. S1 and S2 are heard. No murmurs. ABDOMEN: Soft and nontender. Bowel sounds present. EXTREMITIES: Trace pitting edema in ankles. Posterior tibial pulses 2+. LABORATORY DATA: WBC 14.1, hemoglobin 13.9, hematocrit 44.1, MCV 106, and platelets 265. Sodium 152, potassium 3.5, chloride 109, bicarb 35, BUN 16, creatinine 0.56, and glucose 125. Troponin today at 9:00 a.m. shows 0.124, down from 0.138 this morning at 1:00 a.m. COVID is negative. Chest x-ray shows right lower lobe pneumonia with findings consistent with hyperinflation. The patient has multiple EKGs present, none showing anything consistent with a STEMI. However, the patient does have a QTc prolongation. This prolongation is difficult to appreciate due to the variation in his heart rate on each of these EKGs. IMPRESSION: 1. Sepsis secondary to right lower lobe pneumonia, community acquired. 2. Acute hypoxic respiratory failure secondary to above. 3. Atrial flutter, 2:1, poorly controlled on diltiazem, currently at 7.5 mg/hour. 4. Non-ST segment elevation myocardial infarction, type 2, most likely secondary to demand from heart rate. 5. Possibly sick sinus syndrome given bradycardia-tachycardia findings. PLAN: The patient has responded poorly to diltiazem at this point. We would recommend switching to Multaq, however, the patient's QTc prolongation is a concern at this time. The patient is on azithromycin and Rocephin for his community-acquired pneumonia and we would recommend possible change including doxycycline and azithromycin to allow for Multaq. As of now, we will start digoxin drip in combination with diltiazem drip. We will consult Dr. Elizabeth and consider an ablation once this patient is clinically improved from his pneumonia and hypoxia. Job ID: [id number]
--- NOTE | 2020-08-09 19:15 | CON ---
DATE OF CONSULTATION: 08/09/2020 REASON FOR CONSULTATION: I am seeing Mr. Varner at our [facility] step-down ICU as an electrophysiology clinical science consultant. His problems are: 1. Paroxysmal atrial flutter, possible typical isthmus dependent in morphology with rapid ventricular rate. 2. 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 3. Acute lobar pneumonia, negative for COVID. 4. Preserved LVEF on 2D echo on 08/09/2020 at 50% to 55%, normal atrial size, oino-en-[id number] AI, kihy-jb-pwwfzyjk TR, moderate PI, and normal pulmonary pressures. 5. Type 2 diabetes. 6. Severe longstanding COPD with history of smoking. 7. Anxiety. 8. Remote history of GI bleed. 9. History of pleural effusion. ALLERGIES: NONE NOTED. MEDICATIONS: Prior to admit were includin. Avodart. 2. Alprazolam. 3. Temazepam. 4. Vytorin. 5. Glucophage. 6. Stiolto Respimat inhalers. 7. Mucinex. 8. Aleve. 9. Ditropan. 10. Aricept. 11. Albuterol. 12. Furosemide. 13. Ramipril. SUBJECTIVE: Mr. Varner is here with an acute pneumonia. He had increasing weakness and malaise about a week ago, unable to walk, hence he was transferred to EMS. He also developed unresponsiveness, tachypneic, and febrile. He was found to be COVID negative. Right lower lobe pneumonia was seen. No acute findings on CT head were seen. Antibiotics initiated, seems to have improved from respiratory status, but continues cough and dyspneic. Currently, denies angina, not feeling his palpitations. Does not pass out at this point. No PND or orthopnea noted. REVIEW OF SYSTEMS: Rest of review of systems otherwise unremarkable. The 12 point review of systems is negative otherwise. PAST MEDICAL HISTORY: As above. 1. He has a history of presbycusis. 2. BPH. 3. Chronic insomnia. PAST SURGICAL HISTORY: Significant for: 1. Left inguinal herniorrhaphy. 2. Appendectomy in 2010. 3. Hemilaminectomy in 2014. 4. 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 SOCIAL HISTORY: He is . Chronic smoker, recently quit. Denies EtOH or drug abuse. His is at the bedside. FAMILY HISTORY: Not contributory. OBJECTIVE DATA: VITAL SIGNS: Blood pressure 136/64, heart rate 97, respirations 28, temperature 97.6 degrees Fahrenheit. GENERAL: This is an elderly frail, cachectic-appearing man, in no apparent distress. NECK: Supple. Jugular veins not distended. CHEST: Coarse without crackles. HEART: Sounds are regular to rate and rhythm. No murmur or gallop is heard PMI is nonpalpable. ABDOMEN: Benign. Bowel sounds positive. EXTREMITIES: Lower extremities without edema, clubbing, or cyanosis. NEUROLOGIC: The patient is nonfocal. MUSCULOSKELETAL: Without joint swelling or deformity. SKIN: Without rash. DATABASE: Baseline EKG reveals sinus rhythm, first-degree AV block, poor anterior R-wave progression, nonspecific interventricular conduction delay with QRS duration 162 milliseconds. LABORATORY DATA: White cell count 14.1, down from 25 on admission; hemoglobin 13.9; and platelet count is 265. Sodium 153, potassium 3.5, BUN is 16, creatinine 0.56, and glucose level is 112. AST 47 and ALT 37. Troponin I 0.138 and 0.124. BNP on 08/06 was 313. Albumin was reduced at 2.9 and total protein is reduced at 5.3. Chest x-ray on admission shows right basilar pneumonia. Subsequently, EKG on 08/09/2020 shows slightly increased prominence of right lower lobe parenchymal lung change. Microbiology shows urine culture with gram-negative rods, blood cultures with coag-negative Staphylococcus in 1/2 samples. The telemetry strips reviewed further, which shows episodic atrial flutter with significant inferior lead changes with rates in 150, consistent with 2:1 possibly typical isthmus dependent atrial flutter. Again, this was paroxysmal. QTc also seems to be prolonged. Current medication therapy includes Zithromax. ASSESSMENT AND PLAN: Mr. Varner is a pleasant 80-year-old man with prior history of chronic obstructive pulmonary disease, smoking, who has no prior history of arrhythmias, has preserved left ventricular ejection fraction on current echocardiogram. He is admitted with lobar pneumonia, which was COVID negative. On the other hand while on monitoring, he started developing the atrial arrhythmias. All the episodes are atrial flutter, but also atrial fibrillation seems to be present at times, some of atrial flutter episodes are 2:1 conducted rapidly to the ventricles. Also overnight had episodes of bradycardia in the mid 30s. I discussed the plan with Dr. Salas. For now, it is reasonable to continue attempting rate control while the paroxysms occur. He has prolonged QT, initiation of antiarrhythmic agents also attempted, prolonged QT intervals is difficult to stop. He may need to stop the Zithromax if that is feasible from a pulmonary standpoint and be treated with alternative antiarrhythmic agents. Otherwise, continue the diltiazem therapy, possibly adding digoxin therapy could be considered. He may benefit from considering Multaq once the QT interval more normal. Due to his tachy-lisa syndrome with these episodes continue, long-term pacemaker therapy also a consideration. Continue subcutaneous Lovenox for anticoagulation. If these episodes unresolved, he will likely need oral anticoagulant as well. We will follow with you on 08/12/2020. Thank you again for allowing me to participate in the care of this patient. Job ID: [id number] [facility]
[2020-08-09] MEDS: cefTRIAXone\\ROCEPHIN 2 GM in Sodium Chloride 0.9% 100 ML IVPB SCH (20:26)
[2020-08-10] MEDS: Sodium Chloride 0.45% 1,000 ML IV SCH ×4 (01:45→20:31)
[2020-08-10] MEDS: Diltiazem HCl 125 MG, Admixture Fee 1 EACH in Sodium Chloride 0.9% 100 ML IVPB SCH ×2 (01:46→21:32)
--- NOTE | 2020-08-10 06:50 | CON ---
DATE OF CONSULTATION: 08/09/2020 ADDENDUM: To the Cardiology consult note done by Dr. East. INDICATION FOR CONSULTATION: This is an 80-year-old gentleman, who was admitted with right lower lobe pneumonia, deconditioning and dementia, has then developed atrial flutter with a rapid ventricular response. Heart rate was in the 160s. This has been intermittent. Occasionally, he will be in a sinus rhythm. He also has some episodes of atrial fibrillation. Blood pressure has been relatively stable, but it can be high at times, but he has otherwise been doing relatively stable as far as cardiac is concerned. He has had no previous significant cardiac history, but does have a history of some aortic valve problems. He has been followed by Dr. Goodman in the past. He was seen by myself and Dr. East today, and we have discussed this patient and I would agree with his assessment and plan as we have discussed this patient together. We will also evaluate the patient. He did undergo an echocardiogram today, which showed what appears to be probably severe aortic valve stenosis and mild aortic valve regurgitation. The left ventricular systolic function appears to be relatively well preserved. At this time, I have discussed also his case with the commercial decorator about possible medications for this gentleman. As far as medications are concerned, he has been on azithromycin. Will need to hopefully change this medication in order that we can change other medications for this gentleman to give him something to slow the heart rate down, give him a low-dose of beta blockers. I believe with, given his overall lung problems, we would certainly be very hesitant to start him on amiodarone, could try Multaq, but at this time, we will need to stop some of his medications that might be prolonging the QT. I would need to get him off the azithromycin and also would need to decrease the dose of the diltiazem, which he has been on IV for control of the heart rate with the atrial fibrillation. PHYSICAL EXAMINATION: LUNGS: His examination does show diffuse rales throughout mainly, but more so in the base. HEART: He does have a rapid heart rate, at this time, it is somewhat irregular then later to the examination, the heart rate did decrease down again, he reverted back to sinus rhythm. He does have a harsh systolic murmur over the aortic area. ABDOMEN: Soft and nontender. EXTREMITIES: Did not have any significant clubbing, cyanosis, or edema. NEUROLOGIC: The patient is obviously confused. IMPRESSION AND PLAN: 1. As noted above. Atrial flutter with rapid ventricular response, occasional short runs of atrial fibrillation with tachycardia and also this will be controlled by medications. Hopefully, we will be able to give him as well as the diltiazem, we will give him digoxin and short small doses of IV metoprolol, if he can tolerate it and once we have weaned off some of the antibiotics, we will switch over to different antibiotics and give him a washout, then we can most likely start him on Multaq for control of the atrial flutter. If he does well, he may eventually need to undergo ablation of the atrial flutter with control of the atrial fibrillation if he has it. 2. Pneumonia is being dealt with by the Primary Care Service. 3. Aortic valve stenosis. This may need to be addressed in the future. We cannot determine whether or not he is very symptomatic at this time, but according to his , he does not walk very far without being short of breath. He eventually may need to undergo a TAVR if he is physically able to do that and improves significantly from where he is at this time. Job ID: [id number]
[2020-08-10] MEDS: Aspirin Chewable 81 MG TAB PO SCH (10:21)
[2020-08-10] MEDS: Aspirin 300 MG Suppository PR SCH (10:21)
[2020-08-10] MEDS: Enoxaparin Sodium 40 MG/0.4 ML SYRINGE SC SCH (10:21)
[2020-08-10] MEDS: guaiFENesin ER 600 MG TAB PO SCH (20:33)
[2020-08-10] MEDS ORDERED: Docusate 100 MG CAP PO SCH (21:00)
[2020-08-10] MEDS: cefTRIAXone\\ROCEPHIN 2 GM in Sodium Chloride 0.9% 100 ML IVPB SCH (21:33)
[2020-08-10] MEDS: Docusate Sodium 100 MG/10 ML UDCUP PO SCH (21:34)
[2020-08-11] MEDS: Diltiazem HCl 125 MG, Admixture Fee 1 EACH in Sodium Chloride 0.9% 100 ML IVPB SCH (02:02)
[2020-08-11 03:30] LABS: #Basophils 0.1 thou/uL (0.0-0.2); #Eosinphils 0.1 thou/uL (0.0-0.7); #Lymphocytes 1.2 thou/uL (1.20-3.40); #Monocytes 0.6 thou/uL (0.11-0.59); #Neutrophils 10.5 thou/uL (1.40-6.50); %Basophils 0.5 % (0.0-1.0); %Lymphocytes 9.8 % (21.0-51.0); %Monocytes 4.4 % (0.0-10.0); %Neutrophils 84.3 % (42.0-75.0); Hemoglobin 12.9 g/dL (14.0-18.0); Mean Corpuscular HGB CONC 31.6 g/dL (32.0-36.0); Mean Corpuscular Hemoglobin 33.6 pg (27.0-31.0); Platelet Count 217 thou/uL (130-400); Red Blood Cell (RBC) Count 3.85 mill/uL (4.70-6.10); White Blood Cell (WBC) Count 12.5 thou/uL (4.8-10.8)
[2020-08-11 03:44] LABS: Anion Gap 11 mmol/L (10-20); BUN (Urea Nitrogen) 13 mg/dL (8.4-25.7); Calc. Creatinine Clearance 84 mL/min (70-130); Calcium 8.1 mg/dL (7.8-10.44); Carbon Dioxide 34 mmol/L (23-31); Chloride 107 mmol/L (98-107); Glucose 108 mg/dL (83-110); Potassium 3.7 mmol/L (3.5-5.1); Sodium 148 mmol/L (136-145)
[2020-08-11] MEDS: Sodium Chloride 0.45% 1,000 ML IV SCH ×2 (06:30→14:00)
--- NOTE | 2020-08-11 09:29 | RAD ---
PORTABLE CHEST 1 VIEW: Date: 08/11/2020 Time: 0437 hours HISTORY: Pneumonia. COMPARISON: 08/09/2020. FINDINGS/IMPRESSION: The heart size is normal. The aorta is tortuous. The lungs are well expanded with bibasilar opacities , right greater than left, with probable accompanying small effusions. No pneumothoraces are seen. Fi ndings are suspicious for pneumonia. POS: OFF
[2020-08-11] MEDS: Aspirin Chewable 81 MG TAB PO SCH (10:02)
[2020-08-11] MEDS: guaiFENesin ER 600 MG TAB PO SCH ×2 (10:02→20:07)
[2020-08-11] MEDS: Docusate Sodium 100 MG/10 ML UDCUP PO SCH ×2 (10:03→21:10)
[2020-08-11] MEDS: Aspirin 300 MG Suppository PR SCH (10:03)
[2020-08-11] MEDS: Enoxaparin Sodium 40 MG/0.4 ML SYRINGE SC SCH (10:03)
[2020-08-11] MEDS: cefTRIAXone\\ROCEPHIN 2 GM in Sodium Chloride 0.9% 100 ML IVPB SCH (20:57)
[2020-08-12] MEDS: Sodium Chloride 0.45% 1,000 ML IV SCH ×3 (01:01→13:15)
[2020-08-12] MEDS: Aspirin 300 MG Suppository PR SCH (07:24)
[2020-08-12 09:04] LABS: Anion Gap 11 mmol/L (10-20); BUN (Urea Nitrogen) 10 mg/dL (8.4-25.7); Calc. Creatinine Clearance 85 mL/min (70-130); Calcium 7.8 mg/dL (7.8-10.44); Carbon Dioxide 33 mmol/L (23-31); Chloride 102 mmol/L (98-107); Glucose 113 mg/dL (83-110); Potassium 3.6 mmol/L (3.5-5.1); Sodium 142 mmol/L (136-145)
[2020-08-12 09:11] LABS: Hemoglobin 13.5 g/dL (14.0-18.0); Mean Corpuscular HGB CONC 31.8 g/dL (32.0-36.0); Mean Corpuscular Hemoglobin 33.2 pg (27.0-31.0); Platelet Count 201 thou/uL (130-400); Red Blood Cell (RBC) Count 4.06 mill/uL (4.70-6.10); White Blood Cell (WBC) Count 12.8 thou/uL (4.8-10.8)
[2020-08-12 09:14] LABS: Band 3 % (5-11); Eosinophils 2 % (0-10); Lymphocytes 10 % (21-51); MDiff Complete? YES; Monocytes 3 % (0-10); Neutrophil 78 % (42-75); Platelet Morphology Comment Appears Adequate; Polychromasia SLIGHT = 2-3 cells (100X) (0-2/hpf); Reactive Lymphocytes 4 % (0-10)
[2020-08-12] MEDS: guaiFENesin ER 600 MG TAB PO SCH ×2 (09:59→20:10)
[2020-08-12] MEDS: Enoxaparin Sodium 40 MG/0.4 ML SYRINGE SC SCH (10:00)
[2020-08-12] MEDS: Aspirin Chewable 81 MG TAB PO SCH (10:00)
[2020-08-12] MEDS: Docusate Sodium 100 MG/10 ML UDCUP PO SCH ×2 (10:00→20:11)
--- NOTE | 2020-08-12 10:03 | RAD ---
XR Chest 1 View Portable History: Pneumonia Comparison: Radiograph prior day Findings: Similar appearance of bibasilar airspace opacities as well as small effusions. There is a p eripheral right upper lobe nodule. No pneumothorax. Impression: Similar examination of the chest with findings suspicious for multifocal pneumonia. Akila nued follow-up recommended.
--- NOTE | 2020-08-12 11:44 | CON ---
DATE OF CONSULTATION: 08/12/2020 CONSULTING PHYSICIAN: Dr. Lau. REASON FOR CONSULTATION: Pneumonia. HISTORY OF PRESENT ILLNESS: This patient is an 80-year-old male who came into the hospital on 08/06 with right lower lobe pneumonia and sepsis. His says that he has been going downhill since mid June. At that time, he had been hospitalized for lung operation. She said before that he was dependent on her for activities of daily living including getting up, walking, getting to the couch, etc. Since that time, he has not been doing any of that at home. He basically stays in bed all day long. He has been on antibiotics and then has gotten somewhat better according to reports in the chart. I tried to talk with the patient and he will answer some questions simply, but mainly just sits there and moans. PAST MEDICAL HISTORY: 1. Diabetes mellitus. 2. Hyperlipidemia. 3. COPD. 4. Arthritis. 5. Hearing loss. 6. Prostatic hypertrophy. PAST SURGICAL HISTORY: 1. Left inguinal hernia repair. 2. Appendectomy. 3. Laminectomy. ALLERGIES: NONE. SOCIAL HISTORY: Long history of smoking, but basically has not been on smoke recently because he cannot get outside. MEDICATIONS: Prior to admission: 1. Metformin. 2. Alprazolam. 3. Donepezil. 4. Albuterol. REVIEW OF SYSTEMS: Unable to obtain secondary to the patient's altered mental status. PHYSICAL EXAMINATION: VITAL SIGNS: Temperature 98.1, pulse 72, blood pressure 168/73, O2 saturation 98% on 2 L nasal cannula. GENERAL: The patient appears old, disheveled, and with altered mental status. HEENT: Otherwise, unremarkable. NECK: No adenopathy or JVD. LUNGS: Coarse rhonchi particularly in the bases. CARDIAC: S1 and S2. Irregular. ABDOMEN: Soft and nontender to palpation. EXTREMITIES: No edema. LABORATORY DATA: Sodium 142, potassium 3.6, chloride 102, CO2 of 33, BUN 10, creatinine 0.5, and glucose 113. White blood cell count 12.8, hematocrit 42.5, and platelet count 201. Chest x-ray shows initially bilateral infiltrates. He is clearing on the right lower lobe. ASSESSMENT: 1. Pneumonia. 2. Severe debilitation. 3. Other medical problems listed above. 4. Severe protein-calorie malnutrition. PLAN: I think the current antibiotics and treatment are appropriate. Unfortunately, I think his short-term prognosis is poor secondary to severe debilitation from his other medical issues. Pulmonary is available as needed. Job ID: [id number]
[2020-08-12] MEDS: Morphine 2 MG/ML VIAL SLOW IVP PRN (16:38)
--- NOTE | 2020-08-12 17:48 | PDOC.EP ---
- Subjective Date: 08/12/20 Time: 09:00 Interval History: Improving from pneumonia. - Review of Systems Constitutional: reports: malaise, weakness Respiratory: reports: cough, shortness of breath. denies: wheezing Cardiology: reports: heart racing, palpitations Gastrointestinal: denies: abdominal pain Musculoskeletal: reports: unstable gait - Objective Allergies/Adverse Reactions: Allergies Allergy/AdvReac Type Severity Reaction Status Date / Time No Known Allergies Allergy Verified 11/18/19 22:58 Current Medications Acetaminophen (Acetaminophen 650 Mg Suppository) 650 mg [place] Q4H PRN PRN Reason: TEMP>100.5/PAIN Albuterol/Ipratropium (Ipratropium/Albuterol Sulfate 3 Ml Neb) 3 ml NEB Q2H PRN PRN Reason: Dyspnea Albuterol/Ipratropium (Ipratropium/Albuterol Sulfate 3 Ml Neb) 3 ml NEB [id number] [facility] Last Admin: 08/12/20 14:43 Dose: 3 ml Documented by: Aspirin (Aspirin 300 Mg Suppository) 300 mg IL DAILY [facility] Last Admin: 08/12/20 07:24 Dose: Not Given Documented by: Aspirin (Aspirin Chewable 81 Mg Tab) 81 mg PO DAILY [facility] Last Admin: 08/12/20 10:00 Dose: 81 mg Documented by: Docusate Sodium (Docusate Sodium 100 Mg/10 Ml Udcup) 100 mg PO BID [facility] Last Admin: 08/12/20 10:00 Dose: 100 mg Documented by: Enoxaparin Sodium (Enoxaparin Sodium 40 Mg/0.4 Ml Syringe) 40 mg SC 0900 [facility] Last Admin: 08/12/20 10:00 Dose: 40 mg Documented by: Guaifenesin (Guaifenesin Er 600 Mg Tab) 1,200 mg PO Q12HR [facility] Last Admin: 08/12/20 09:59 Dose: 1,200 mg Documented by: Ceftriaxone Sodium 2 gm/ (Sodium Chloride) 100 mls @ 200 mls/hr IVPB 2100 [facility] Last Admin: 08/11/20 20:57 Dose: 100 mls Documented by: Sodium Chloride (1/2 Normal Saline) 1,000 mls @ 125 mls/hr IV .Q8H [facility] Last Admin: 08/12/20 13:15 Dose: 1,000 mls Documented by: Diltiazem HCl 125 mg/Miscellaneous Medication 1 each/ Sodium Chloride 125 mls @ 0 mls/hr IVPB INF [facility]; Protocol Last Admin: 08/11/20 02:02 Dose: 125 mls Documented by: Doxycycline Hyclate 100 mg/ (Sodium Chloride) 100 mls @ 100 mls/hr IVPB 0500,1700 [facility] Last Admin: 08/12/20 16:37 Dose: 100 mls Documented by: Lorazepam (Lorazepam 2 Mg/Ml Vial) 0.5 mg SLOW IVP Q1H PRN PRN Reason: AGITATION/ANXIETY Last Admin: 08/11/20 20:06 Dose: 0.5 mg Documented by: Morphine Sulfate (Morphine 2 Mg/Ml Vial) 1 mg SLOW IVP Q1H PRN PRN Reason: PAIN/ANXIETY Last Admin: 08/12/20 16:38 Dose: 1 mg Documented by: Ondansetron HCl (Ondansetron Pf 4 Mg/2 Ml Vial) 4 mg IVP Q6H PRN PRN Reason: Nausea/Vomiting Sodium Chloride (Flush - Normal Saline 10 Ml Syringe) 10 ml IVF PRN PRN PRN Reason: Saline Flush Vital Signs & Weight: Vital Signs Temp Pulse Pulse Pulse Resp BP BP 08/12/20 14:43 77 34 H 08/12/20 14:35 82 79 181/89 H 160/72 H 08/12/20 11:27 98.5 F 08/12/20 11:12 73 21 H 08/12/20 08:00 08/12/20 07:51 73 26 H 08/12/20 07:45 98.1 F Pulse Ox Pulse Ox Pulse Ox 08/12/20 14:43 100 08/12/20 14:35 94 L 95 08/12/20 11:27 08/12/20 11:12 96 08/12/20 08:00 100 08/12/20 07:51 97 08/12/20 07:45 Admit Weight 123 lb 9.6 oz Weight 123 lb 9.6 oz I/O: I/O 08/11/20 08/12/20 08/13/20 06:59 06:59 06:59 Intake Total 3170 3700 Output Total 1000 1900 Balance 2170 1800 - Physical Exam General: alert & oriented x3, cachectic HEENT: normocephaly Neck: no JVD/HJR Cardiology: regular rate Lungs: normal breath sounds, no wheezes Neurology: grossly intact Abdomen: unremarkable, soft, non-tender Extremities: warm Musculoskeletal: no pain - Labs Result Diagrams: 08/12/20 08:17 08/12/20 08:17 - EKG Interpretation EKG Method: Telemetry EKG shows: Sinus rhythm, Typical atrial flutter - Assessment/Plan Assessment/Plan: ASSESSMENT AND PLAN: Mr. Varner is a pleasant 80-year-old man with prior history of chronic obstructive pulmonary disease, smoking, who has no prior history of arrhythmias, has preserved left ventricular ejection fraction on current echocardiogram. He is admitted with lobar pneumonia, which was COVID negative. On the other hand while on monitoring, he started developing the atrial arrhythmias. All the episodes are atrial flutter, but also atrial fibrillation seems to be present at times, some of atrial flutter episodes are 2:1 conducted rapidly to the ventricles. Also overnight had episodes of bradycardia in the mid 30s. 1. Paroxysmal atrial flutter, possible typical isthmus dependent in morphology with rapid ventricular rate. 2. 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 3. Acute lobar pneumonia, negative for COVID. 4. Preserved LVEF on 2D echo on 08/09/2020 at 50% to 55%, normal atrial size, [id number] AI, [id number] TR, moderate PI, and normal pulmonary pressures. 5. Type 2 diabetes. 6. Severe longstanding COPD with history of smoking. 7. Anxiety. 8. Remote history of GI bleed. 9. History of pleural effusion. - Continue attempting rate control if atrial flutter the paroxysms occur with diltiazem. - He has baseline prolonged QT, initiation of antiarrhythmic agents hence the prolonged QT intervals is difficult. He stopped the Zithromax. Once QT normalizes, consider Multaq. Due to his tachy-lisa syndrome with these episodes continue, long-term pacemaker therapy also a consideration. Continue subcutaneous Lovenox for anticoagulation. If these episodes unresolved, he will likely need oral anticoagulant as well. 08/12/20. improving over weekend. Occasional recurrent AFL with RVR.
[2020-08-12] MEDS ORDERED: cloNIDine 0.1 MG TAB PO PRN (18:45)
[2020-08-12] MEDS ORDERED: Ramipril 5 MG CAP PO SCH (18:45)
[2020-08-12] MEDS: cefTRIAXone\\ROCEPHIN 2 GM in Sodium Chloride 0.9% 100 ML IVPB SCH (20:10)
[2020-08-13] MEDS: Sodium Chloride 0.45% 1,000 ML IV SCH ×4 (00:34→23:36)
[2020-08-13 03:50] LABS: #Eosinphils 0.1 thou/uL (0.0-0.7); #Lymphocytes 1.2 thou/uL (1.20-3.40); #Monocytes 0.7 thou/uL (0.11-0.59); #Neutrophils 11.8 thou/uL (1.40-6.50); %Basophils 0.2 % (0.0-1.0); %Lymphocytes 8.8 % (21.0-51.0); %Monocytes 5.2 % (0.0-10.0); %Neutrophils 84.8 % (42.0-75.0); Mean Corpuscular HGB CONC 32.5 g/dL (32.0-36.0); Mean Corpuscular Hemoglobin 33.6 pg (27.0-31.0); Mean Platelet Volume 7.4 fL (7.4-10.4); Platelet Count 219 thou/uL (130-400); RBC Distribution Width 12.8 % (11.5-14.5); Red Blood Cell (RBC) Count 3.87 mill/uL (4.70-6.10); White Blood Cell (WBC) Count 13.9 thou/uL (4.8-10.8)
[2020-08-13 04:15] LABS: Anion Gap 8 mmol/L (10-20); BUN (Urea Nitrogen) 10 mg/dL (8.4-25.7); Calc. Creatinine Clearance 92 mL/min (70-130); Calcium 7.7 mg/dL (7.8-10.44); Carbon Dioxide 34 mmol/L (23-31); Chloride 100 mmol/L (98-107); Glucose 99 mg/dL (83-110); Potassium 3.6 mmol/L (3.5-5.1); Sodium 138 mmol/L (136-145)
[2020-08-13] MEDS ORDERED: Terazosin HCl 1 MG CAP PO SCH (08:30)
--- NOTE | 2020-08-13 09:40 | PRG ---
DATE OF SERVICE: 08/13/2020 SUBJECTIVE: The patient is lying in bed comfortably, had no acute complaints, but he is demented and does not really remember what is going on. OBJECTIVE: VITAL SIGNS: Temperature is 98.3, pulse 81, blood pressure 146/96, and O2 saturation 95% on nasal cannula. HEENT: Unremarkable. NECK: No JVD. LUNGS: Fairly clear. CARDIAC: S1 and S2. Regular. ABDOMEN: Soft. EXTREMITIES: No edema. ASSESSMENT: 1. Pneumonia. 2. Severe debilitation. 3. Severe protein-calorie malnutrition. PLAN: 1. Finish out antibiotics. 2. Code status may need to be addressed as the patient's short-term prognosis is poor. Job ID: [id number]
[2020-08-13] MEDS: Megestrol Acetate 800 MG/20 ML UDCUP PO SCH ×2 (10:09→20:07)
[2020-08-13] MEDS: Docusate Sodium 100 MG/10 ML UDCUP PO SCH ×2 (10:10→20:07)
[2020-08-13] MEDS: Ramipril 5 MG CAP PO SCH (10:11)
[2020-08-13] MEDS: guaiFENesin ER 600 MG TAB PO SCH ×2 (10:11→20:05)
[2020-08-13] MEDS: Calcium Carbonate 500 MG ChewTAB PO SCH ×3 (10:11→20:05)
[2020-08-13] MEDS: Aspirin Chewable 81 MG TAB PO SCH (10:11)
[2020-08-13] MEDS: Aspirin 300 MG Suppository PR SCH (10:12)
[2020-08-13] MEDS: Enoxaparin Sodium 40 MG/0.4 ML SYRINGE SC SCH (10:12)
--- NOTE | 2020-08-13 16:44 | PDOC.EP ---
- Subjective Date: 08/13/20 Time: 08:00 Interval History: SOB with tachypnea. Breathless with 2 word responses. - Review of Systems Respiratory: reports: shortness of breath. denies: cough, hemoptysis, pleuritic pain Cardiology: denies: chest pain, edema, heart racing, light headedness Gastrointestinal: denies: abdominal pain, constipation, diarrhea - Objective Allergies/Adverse Reactions: Allergies Allergy/AdvReac Type Severity Reaction Status Date / Time No Known Allergies Allergy Verified 11/18/19 22:58 Current Medications Acetaminophen (Acetaminophen 650 Mg Suppository) 650 mg [place] Q4H PRN PRN Reason: TEMP>100.5/PAIN Albuterol/Ipratropium (Ipratropium/Albuterol Sulfate 3 Ml Neb) 3 ml NEB Q2H PRN PRN Reason: Dyspnea Albuterol/Ipratropium (Ipratropium/Albuterol Sulfate 3 Ml Neb) 3 ml NEB [id number] [facility] Last Admin: 08/13/20 14:32 Dose: 3 ml Documented by: Aspirin (Aspirin 300 Mg Suppository) 300 mg LA DAILY [facility] Last Admin: 08/13/20 10:12 Dose: Not Given Documented by: Aspirin (Aspirin Chewable 81 Mg Tab) 81 mg PO DAILY [facility] Last Admin: 08/13/20 10:11 Dose: 81 mg Documented by: Calcium Carbonate (Calcium Carbonate 500 Mg Chewtab) 500 mg PO TID [facility] Last Admin: 08/13/20 14:33 Dose: 500 mg Documented by: Clonidine (Clonidine 0.1 Mg Tab) 0.1 mg PO Q2H PRN PRN Reason: SBP Greater Than 180 Docusate Sodium (Docusate Sodium 100 Mg/10 Ml Udcup) 100 mg PO BID [facility] Last Admin: 08/13/20 10:10 Dose: 100 mg Documented by: Donepezil HCl (Donepezil Hcl 5 Mg Tab) 5 mg PO HS [facility] Dronedarone (Dronedarone Hcl 400 Mg Tab) 400 mg PO BID-[facility] Enoxaparin Sodium (Enoxaparin Sodium 40 Mg/0.4 Ml Syringe) 40 mg SC 0900 [facility] Last Admin: 08/13/20 10:12 Dose: 40 mg Documented by: Guaifenesin (Guaifenesin Er 600 Mg Tab) 1,200 mg PO Q12HR [facility] Last Admin: 08/13/20 10:11 Dose: 1,200 mg Documented by: Ceftriaxone Sodium 2 gm/ (Sodium Chloride) 100 mls @ 200 mls/hr IVPB 2100 [facility] Last Admin: 08/12/20 20:10 Dose: 100 mls Documented by: Sodium Chloride (1/2 Normal Saline) 1,000 mls @ 125 mls/hr IV .Q8H [facility] Last Admin: 08/13/20 14:32 Dose: 1,000 mls Documented by: Diltiazem HCl 125 mg/Miscellaneous Medication 1 each/ Sodium Chloride 125 mls @ 0 mls/hr IVPB INF [facility]; Protocol Last Admin: 08/11/20 02:02 Dose: 125 mls Documented by: Doxycycline Hyclate 100 mg/ (Sodium Chloride) 100 mls @ 100 mls/hr IVPB 0500,1700 [facility] Last Admin: 08/13/20 14:33 Dose: 100 mls Documented by: Lorazepam (Lorazepam 2 Mg/Ml Vial) 0.5 mg SLOW IVP Q1H PRN PRN Reason: AGITATION/ANXIETY Last Admin: 08/11/20 20:06 Dose: 0.5 mg Documented by: Megestrol Acetate (Megestrol Acetate 800 Mg/20 Ml Udcup) 200 mg PO BID [facility] Last Admin: 08/13/20 10:09 Dose: 200 mg Documented by: Morphine Sulfate (Morphine 2 Mg/Ml Vial) 1 mg SLOW IVP Q1H PRN PRN Reason: PAIN/ANXIETY Last Admin: 08/12/20 16:38 Dose: 1 mg Documented by: Ondansetron HCl (Ondansetron Pf 4 Mg/2 Ml Vial) 4 mg IVP Q6H PRN PRN Reason: Nausea/Vomiting Ramipril (Ramipril 5 Mg Cap) 10 mg PO DAILY [facility] Last Admin: 08/13/20 10:11 Dose: 10 mg Documented by: Sodium Chloride (Flush - Normal Saline 10 Ml Syringe) 10 ml IVF PRN PRN PRN Reason: Saline Flush Terazosin HCl (Terazosin Hcl 1 Mg Cap) 2 mg PO [facility] Vital Signs & Weight: Vital Signs Temp Pulse Resp BP Pulse Ox 08/13/20 15:56 97.8 F 08/13/20 14:32 82 32 H 97 08/13/20 11:23 99.3 F 08/13/20 10:58 91 30 H 96 08/13/20 10:11 144/91 H 08/13/20 08:00 98 08/13/20 07:46 78 26 H 90 L 08/13/20 07:37 98.3 F Admit Weight 123 lb 9.6 oz Weight 123 lb 9.6 oz I/O: I/O 08/12/20 08/13/20 08/14/20 06:59 06:59 06:59 Intake Total 3700 3480 Output Total 1900 2425 Balance 1800 1055 - Quality Measures Condition: Atrial Fibrillation/Flutter (hx or current) - Physical Exam General: alert & oriented x3, cachectic. negative: appears well, no apparent distress HEENT: mucus membranes moist, normocephaly, EOMI Neck: supple neck, midline trachea, no JVD/HJR Cardiology: regular rate and rhythm, no murmur, regular rate Lungs: decreased breath sounds, wheezes, bibasilar rales, oxygen Neurology: cranial nerve 2-12 intact, grossly intact, coordination normal Abdomen: unremarkable, active bowel sounds, HJR negative Extremities: dry, strong pulses, warm - Labs Result Diagrams: 08/13/20 03:14 08/13/20 03:14 - EKG Interpretation EKG Method: Telemetry EKG shows: Sinus rhythm - Assessment/Plan Assessment/Plan: ASSESSMENT AND PLAN: Mr. Varner is a pleasant 80-year-old man with prior history of chronic obstructive pulmonary disease, smoking, who has no prior history of arrhythmias, has preserved left ventricular ejection fraction on current echocardiogram. He is admitted with lobar pneumonia, which was COVID negative. On the other hand while on monitoring, he started developing the atrial arrhythmias. All the episodes are atrial flutter, but also atrial fibrillation seems to be present at times, some of atrial flutter episodes are 2:1 conducted rapidly to the ventricles. Also overnight had episodes of bradycardia in the mid 30s. 1. Paroxysmal atrial flutter, possible typical isthmus dependent in morphology with rapid ventricular rate. 2. 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 3. Acute lobar pneumonia, negative for COVID. 4. Preserved LVEF on 2D echo on 08/09/2020 at 50% to 55%, normal atrial size, gjfs-gw-xnznlaer AI, nvee-zk-bqixxciy TR, moderate PI, and normal pulmonary pressures. 5. Type 2 diabetes. 6. Severe longstanding COPD with history of smoking. 7. Anxiety. 8. Remote history of GI bleed. 9. History of pleural effusion. - He has baseline prolonged QT, initiation of antiarrhythmic agents hence the prolonged QT intervals is difficult. He stopped the Zithromax. QTc stable today. Starting multaq. May continue to use dilt gtt for rate control as needed. Due to his tachy-lisa syndrome with these episodes continue, long-term pacemaker therapy also a consideration. Continue subcutaneous Lovenox for anticoagulation. If these episodes unresolved, he will likely need oral anticoagulant as well. 08/13/20. Rhythm stable overnight but went into AF RVr later in the day. Started multaq. Use dilt gtt prn to keep HR <100bpm
[2020-08-13] MEDS: Diltiazem HCl 125 MG, Admixture Fee 1 EACH in Sodium Chloride 0.9% 100 ML IVPB SCH (17:02)
[2020-08-13] MEDS: Dronedarone HCl 400 MG TAB PO SCH (17:02)
[2020-08-13] MEDS: Donepezil HCl 5 MG TAB PO SCH (20:05)
[2020-08-13] MEDS: cefTRIAXone\\ROCEPHIN 2 GM in Sodium Chloride 0.9% 100 ML IVPB SCH (20:07)
[2020-08-13] MEDS: Terazosin HCl 1 MG CAP PO SCH (20:09)
[2020-08-14 03:59] LABS: #Basophils 0.1 thou/uL (0.0-0.2); #Eosinphils 0.1 thou/uL (0.0-0.7); #Lymphocytes 1.2 thou/uL (1.20-3.40); #Monocytes 0.8 thou/uL (0.11-0.59); #Neutrophils 13.1 thou/uL (1.40-6.50); %Basophils 0.3 % (0.0-1.0); %Eosinophils 0.4 % (0.0-10.0); %Lymphocytes 7.6 % (21.0-51.0); %Neutrophils 86.7 % (42.0-75.0); Hemoglobin 12.2 g/dL (14.0-18.0); Mean Corpuscular HGB CONC 32.9 g/dL (32.0-36.0); Mean Corpuscular Hemoglobin 33.6 pg (27.0-31.0); Mean Platelet Volume 8.3 fL (7.4-10.4); Platelet Count 200 thou/uL (130-400); RBC Distribution Width 12.9 % (11.5-14.5); Red Blood Cell (RBC) Count 3.63 mill/uL (4.70-6.10); White Blood Cell (WBC) Count 15.1 thou/uL (4.8-10.8)
[2020-08-14 04:24] LABS: Anion Gap 9 mmol/L (10-20); BUN (Urea Nitrogen) 13 mg/dL (8.4-25.7); Calc. Creatinine Clearance 94 mL/min (70-130); Calcium 7.7 mg/dL (7.8-10.44); Carbon Dioxide 30 mmol/L (23-31); Chloride 99 mmol/L (98-107); Glucose 115 mg/dL (83-110); Magnesium 1.8 mg/dL (1.6-2.6); Potassium 3.4 mmol/L (3.5-5.1); Sodium 135 mmol/L (136-145)
[2020-08-14] MEDS: Morphine 2 MG/ML VIAL SLOW IVP PRN (04:40)
[2020-08-14] MEDS: Dronedarone HCl 400 MG TAB PO SCH ×2 (08:26→16:34)
[2020-08-14] MEDS: Calcium Carbonate 500 MG ChewTAB PO SCH ×3 (08:26→21:50)
[2020-08-14] MEDS: Ramipril 5 MG CAP PO SCH (08:26)
[2020-08-14] MEDS: guaiFENesin ER 600 MG TAB PO SCH ×2 (08:26→21:51)
[2020-08-14] MEDS: Aspirin Chewable 81 MG TAB PO SCH (08:26)
[2020-08-14] MEDS: Enoxaparin Sodium 40 MG/0.4 ML SYRINGE SC SCH (08:27)
[2020-08-14] MEDS: Docusate Sodium 100 MG/10 ML UDCUP PO SCH ×2 (08:27→21:49)
[2020-08-14] MEDS: Megestrol Acetate 800 MG/20 ML UDCUP PO SCH ×2 (08:27→21:49)
[2020-08-14] MEDS: Aspirin 300 MG Suppository PR SCH (08:27)
--- NOTE | 2020-08-14 10:10 | PDOC.EP ---
- Subjective Date: 08/14/20 Time: 07:30 Interval History: SOB. fatigued. weak. tired. transferred to tele. - Review of Systems Constitutional: reports: weakness. denies: chills, fever, malaise Respiratory: reports: shortness of breath. denies: cough, dry, hemoptysis, pleuritic pain Cardiology: denies: chest pain, edema, heart racing, orthopnea, swelling Gastrointestinal: denies: abdominal pain, constipation, diarrhea Musculoskeletal: reports: unstable gait. denies: falls - Objective Allergies/Adverse Reactions: Allergies Allergy/AdvReac Type Severity Reaction Status Date / Time No Known Allergies Allergy Verified 11/18/19 22:58 Current Medications Acetaminophen (Acetaminophen 650 Mg Suppository) 650 mg IN Q4H PRN PRN Reason: TEMP>100.5/PAIN Albuterol/Ipratropium (Ipratropium/Albuterol Sulfate 3 Ml Neb) 3 ml NEB Q2H PRN PRN Reason: Dyspnea Albuterol/Ipratropium (Ipratropium/Albuterol Sulfate 3 Ml Neb) 3 ml NEB [id number] Last Admin: 08/14/20 08:09 Dose: 3 ml Documented by: Aspirin (Aspirin 300 Mg Suppository) 300 mg IN DAILY [facility] Last Admin: 08/14/20 08:27 Dose: Not Given Documented by: Aspirin (Aspirin Chewable 81 Mg Tab) 81 mg PO DAILY [facility] Last Admin: 08/14/20 08:26 Dose: 81 mg Documented by: Calcium Carbonate (Calcium Carbonate 500 Mg Chewtab) 500 mg PO TID [facility] Last Admin: 08/14/20 08:26 Dose: 500 mg Documented by: Clonidine (Clonidine 0.1 Mg Tab) 0.1 mg PO Q2H PRN PRN Reason: SBP Greater Than 180 Docusate Sodium (Docusate Sodium 100 Mg/10 Ml Udcup) 100 mg PO BID [facility] Last Admin: 08/14/20 08:27 Dose: 100 mg Documented by: Donepezil HCl (Donepezil Hcl 5 Mg Tab) 5 mg PO HS [facility] Last Admin: 08/13/20 20:05 Dose: 5 mg Documented by: Dronedarone (Dronedarone Hcl 400 Mg Tab) 400 mg PO BID-[facility] Last Admin: 08/14/20 08:26 Dose: 400 mg Documented by: Enoxaparin Sodium (Enoxaparin Sodium 40 Mg/0.4 Ml Syringe) 40 mg SC 0900 [facility] Last Admin: 08/14/20 08:27 Dose: 40 mg Documented by: Guaifenesin (Guaifenesin Er 600 Mg Tab) 1,200 mg PO Q12HR [facility] Last Admin: 08/14/20 08:26 Dose: 1,200 mg Documented by: Ceftriaxone Sodium 2 gm/ (Sodium Chloride) 100 mls @ 200 mls/hr IVPB 2100 [facility] Last Admin: 08/13/20 20:07 Dose: 100 mls Documented by: Sodium Chloride (1/2 Normal Saline) 1,000 mls @ 125 mls/hr IV .Q8H [facility] Last Admin: 08/13/20 23:36 Dose: 1,000 mls Documented by: Diltiazem HCl 125 mg/Miscellaneous Medication 1 each/ Sodium Chloride 125 mls @ 0 mls/hr IVPB INF [facility]; Protocol Last Admin: 08/13/20 17:02 Dose: 125 mls Documented by: Doxycycline Hyclate 100 mg/ (Sodium Chloride) 100 mls @ 100 mls/hr IVPB 0500,17 00 [facility] Last Admin: 08/14/20 04:40 Dose: 100 mls Documented by: Lorazepam (Lorazepam 2 Mg/Ml Vial) 0.5 mg SLOW IVP Q1H PRN PRN Reason: AGITATION/ANXIETY Last Admin: 08/11/20 20:06 Dose: 0.5 mg Documented by: Megestrol Acetate (Megestrol Acetate 800 Mg/20 Ml Udcup) 200 mg PO BID [facility] Last Admin: 08/14/20 08:27 Dose: 200 mg Documented by: Morphine Sulfate (Morphine 2 Mg/Ml Vial) 1 mg SLOW IVP Q1H PRN PRN Reason: PAIN/ANXIETY Last Admin: 08/14/20 04:40 Dose: 1 mg Documented by: Ondansetron HCl (Ondansetron Pf 4 Mg/2 Ml Vial) 4 mg IVP Q6H PRN PRN Reason: Nausea/Vomiting Ramipril (Ramipril 5 Mg Cap) 10 mg PO DAILY [facility] Last Admin: 08/14/20 08:26 Dose: 10 mg Documented by: Sodium Chloride (Flush - Normal Saline 10 Ml Syringe) 10 ml IVF PRN PRN PRN Reason: Saline Flush Terazosin HCl (Terazosin Hcl 1 Mg Cap) 2 mg PO HS [facility] Last Admin: 08/13/20 20:09 Dose: 2 mg Documented by: Vital Signs & Weight: Vital Signs Temp Pulse Resp Pulse Ox 08/14/20 08:09 77 28 H 98 08/14/20 07:51 98.5 F 08/14/20 03:56 98.2 F 08/14/20 02:24 78 20 98 08/13/20 23:56 98.2 F 08/13/20 23:18 74 22 H 98 Admit Weight 123 lb 9.6 oz Weight 123 lb 9.6 oz I/O: I/O 08/13/20 08/14/20 08/15/20 06:59 06:59 06:59 Intake Total 3480 2636 Output Total 2425 1175 Balance 1055 1461 - Quality Measures Condition: Atrial Fibrillation/Flutter (hx or current) (lovenox) - Physical Exam General: cachectic. negative: appears well HEENT: normocephaly, EOMI, mucus membranes dry, pallor Neck: supple neck, midline trachea, no JVD/HJR Cardiology: regular rate and rhythm. negative: tachycardia, bradycardia Lungs: no wheeze, rales, rhonchi, decreased breath sounds Neurology: cranial nerve 2-12 intact, grossly intact, coordination normal Abdomen: unremarkable, active bowel sounds, HJR negative - Chadsvasc Risk factors Age >75: 2 Diabetes mellitus: 1 Risk Score: 3 - Labs Result Diagrams: 08/14/20 03:20 08/14/20 03:20 - EKG Interpretation EKG Method: Telemetry EKG shows: Sinus rhythm - Assessment/Plan Assessment/Plan: ASSESSMENT AND PLAN: Mr. Varner is a pleasant 80-year-old man with prior history of chronic obstructive pulmonary disease, smoking, who has no prior history of arrhythmias, has preserved left ventricular ejection fraction on current echocardiogram. He is admitted with lobar pneumonia, which was COVID negative. On the other hand while on monitoring, he started developing the atrial arrhythmias. All the episodes are atrial flutter, but also atrial fibrillation seems to be present at times, some of atrial flutter episodes are 2:1 conducted rapidly to the ventricles. Also overnight had episodes of bradycardia in the mid 30s. 1. Paroxysmal atrial flutter, possible typical isthmus dependent in morphology with rapid ventricular rate. 2. 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 Acute lobar pneumonia, negative for COVID. 4. Preserved LVEF on 2D echo on 08/09/2020 at 50% to 55%, normal atrial size, [id number] AI, [id number] TR, moderate PI, and normal pulmonary pressures. 5. Type 2 diabetes. 6. Severe longstanding COPD with history of smoking. 7. Anxiety. 8. Remote history of GI bleed. 9. History of pleural effusion. 10.QT prolongation -contributing anbx stopped -QTc now stable Continue subcutaneous Lovenox for anticoagulation. If these episodes unresolved, he will likely need oral anticoagulant as well. Started multaq 08/13 for AF suppression. rhythm has responded nicely. Dilt gtt has been stopped. Monitor for bradycardia
--- NOTE | 2020-08-14 10:14 | RAD ---
PORTABLE CHEST: DATE: 08/12/2020 exam. HISTORY: Pneumonia. FINDINGS: Heart size within normal limits. Chronic lung changes are seen. Bibasilar infiltrative changes are similar to the prior exam. Some minimal changes in the right upper lobe are also stable. IMPRESSION: Stable exam. POS: [facility]
[2020-08-14] MEDS: Sodium Chloride 0.45% 1,000 ML IV SCH ×2 (12:55)
--- NOTE | 2020-08-14 16:07 | PDOC.CPN ---
- Subjective Date: 08/14/20 Time: 16:05 Interval history: Patient sitting at edge of bed, c/o SOB and fatigue, tried to work with therapy but was too weak to get out of bed, he has been sitting on the edge of the bed per family report. he is wearing oxygen via nasal cannula - Review of Systems General: reports: fatigue. denies: fever/chills, weight/appetite/sleep changes, night sweats Respiratory: reports: shortness of breath, exercise intolerance Cardiovascular: denies: chest pain, palpitation, edema, paroxysmal nocturnal dyspnea, orthopnea Gastrointestinal: denies: nausea, vomiting, diarrhea, constipation, abd pain, GI bleeding Musculoskeletal: denies: pain, tenderness, stiffness, swelling, arthritis/arthralgias Neurological: reports: weakness - Objective Allergies/Adverse Reactions: Allergies Allergy/AdvReac Type Severity Reaction Status Date / Time No Known Allergies Allergy Verified 11/18/19 22:58 Visit Medications: Current Medications Acetaminophen (Acetaminophen 650 Mg Suppository) 650 mg IA Q4H PRN PRN Reason: TEMP>100.5/PAIN Albuterol/Ipratropium (Ipratropium/Albuterol Sulfate 3 Ml Neb) 3 ml NEB Q2H PRN PRN Reason: Dyspnea Albuterol/Ipratropium (Ipratropium/Albuterol Sulfate 3 Ml Neb) 3 ml NEB [id number] [facility] Last Admin: 08/14/20 14:09 Dose: 3 ml Documented by: Aspirin (Aspirin 300 Mg Suppository) 300 mg IA DAILY [facility] Last Admin: 08/14/20 08:27 Dose: Not Given Documented by: Aspirin (Aspirin Chewable 81 Mg Tab) 81 mg PO DAILY [facility] Last Admin: 08/14/20 08:26 Dose: 81 mg Documented by: Calcium Carbonate (Calcium Carbonate 500 Mg Chewtab) 500 mg PO TID [facility] Last Admin: 08/14/20 14:54 Dose: Not Given Documented by: Clonidine (Clonidine 0.1 Mg Tab) 0.1 mg PO Q2H PRN PRN Reason: SBP Greater Than 180 Docusate Sodium (Docusate Sodium 100 Mg/10 Ml Udcup) 100 mg PO BID [facility] Last Admin: 08/14/20 08:27 Dose: 100 mg Documented by: Donepezil HCl (Donepezil Hcl 5 Mg Tab) 5 mg PO HS [facility] Last Admin: 08/13/20 20:05 Dose: 5 mg Documented by: Dronedarone (Dronedarone Hcl 400 Mg Tab) 400 mg PO BID-[facility] Last Admin: 08/14/20 08:26 Dose: 400 mg Documented by: Enoxaparin Sodium (Enoxaparin Sodium 40 Mg/0.4 Ml Syringe) 40 mg SC 0900 [facility] Last Admin: 08/14/20 08:27 Dose: 40 mg Documented by: Guaifenesin (Guaifenesin Er 600 Mg Tab) 1,200 mg PO Q12HR [facility] Last Admin: 08/14/20 08:26 Dose: 1,200 mg Documented by: Ceftriaxone Sodium 2 gm/ (Sodium Chloride) 100 mls @ 200 mls/hr IVPB 2100 [facility] Last Admin: 08/13/20 20:07 Dose: 100 mls Documented by: Sodium Chloride (1/2 Normal Saline) 1,000 mls @ 125 mls/hr IV .Q8H [facility] Last Admin: 08/14/20 12:55 Dose: 1,000 mls Documented by: Doxycycline Hyclate 100 mg/ (Sodium Chloride) 100 mls @ 100 mls/hr IVPB 0500,1700 [facility] Last Admin: 08/14/20 04:40 Dose: 100 mls Documented by: Lorazepam (Lorazepam 2 Mg/Ml Vial) 0.5 mg SLOW IVP Q1H PRN PRN Reason: AGITATION/ANXIETY Last Admin: 08/11/20 20:06 Dose: 0.5 mg Documented by: Megestrol Acetate (Megestrol Acetate 800 Mg/20 Ml Udcup) 200 mg PO BID [facility] Last Admin: 08/14/20 08:27 Dose: 200 mg Documented by: Morphine Sulfate (Morphine 2 Mg/Ml Vial) 1 mg SLOW IVP Q1H PRN PRN Reason: PAIN/ANXIETY Last Admin: 08/14/20 04:40 Dose: 1 mg Documented by: Ondansetron HCl (Ondansetron Pf 4 Mg/2 Ml Vial) 4 mg IVP Q6H PRN PRN Reason: Nausea/Vomiting Ramipril (Ramipril 5 Mg Cap) 10 mg PO DAILY [facility] Last Admin: 08/14/20 08:26 Dose: 10 mg Documented by: Sodium Chloride (Flush - Normal Saline 10 Ml Syringe) 10 ml IVF PRN PRN PRN Reason: Saline Flush Terazosin HCl (Terazosin Hcl 1 Mg Cap) 2 mg PO HS [facility] Last Admin: 08/13/20 20:09 Dose: 2 mg Documented by: Vital Signs & Weight: Vital Signs Temp Pulse Resp BP Pulse Ox 08/14/20 12:55 98.7 F 70 16 116/56 L 99 08/14/20 10:55 98.6 F 66 16 144/61 H 96 08/14/20 08:09 77 28 H 98 08/14/20 07:51 98.5 F 08/14/20 07:50 96 Admit Weight 123 lb 9.6 oz Weight 123 lb 9.6 oz - Physical Exam General: cachectic Neck: midline trachea, no JVD/HJR, no bruit Cardiac: regular rate and rhythm, systolic murmur Lungs: decreased breath sounds, oxygen, other (tachypnea) Neuro: grossly intact Abdomen: active bowel sounds, soft, non-tender Extremities: no cyanosis, no clubbing, 1+ LE edema Skin: brusing, other (thin skin, scattered bruising) Musculoskeletal: decreased range of motion - Labs Result Diagrams: 08/14/20 03:20 08/14/20 03:20 Troponin/CKMB CK-MB (CK-2) 2.2 ng/mL (0-6.6) 08/09/20 09:01 Troponin I 0.103 ng/mL (< 0.028) H 08/09/20 16:29 - EKG Interpretation EKG Method: Telemetry EKG: sinus rhythm - Assessment/Plan Assessment/Plan: 1. Atrial fibrillation with rapid ventricular response. Multaq has been started and Cardizem drip has been stopped. His heart rate remains controlled in the 70's in sinus rhythm at this time. Patient on Lovenox for anticoagulation, if atrial fibrillation continues, may need OAC. We will continue to monitor for arrhythmia and bradycardia. 2. Pneumonia: treated by primary care services, negative for COVID-19 3. Severe COPD: long history of smoking, wearing oxygen 4. Aortic valve stenosis: may need TAVR in future, unable to tell if patient is symptomatic d/t other illness at this time, reports patient does have [place] when moving around or walking. Pt.seen and eval.by me.His breath sounds are improved over the prior several days.He continues to have intermittent Afib with RVR. EP is following. I agree with the A/P by the WORKERS' COMPENSATION CLAIMS EXAMINER. Since EP is following his arhythmias, I do not have anything else to add. I will sign off. If any new cardiac issues please consult me again.Thank you for the consult. He should follow upwith in 2-4 weeks after d/c. shalonda
--- NOTE | 2020-08-14 20:39 | ULT ---
DOPPLER VENOUS ULTRASOUND OF BOTH UPPER EXREMITIES: 08/14/20 INDICATION: Bilateral upper extremity edema. TECHNIQUE: [place] scale, color Doppler with spectral Doppler image were obtained of the venous structures of both upper extremities. FINDINGS: There is normal compression, flow and augmentation seen within the venous structures of both upper ex tremities. IMPRESSION: No evidence of venous thrombosis with both upper extremities. POS: BH
[2020-08-14] MEDS: cefTRIAXone\\ROCEPHIN 2 GM in Sodium Chloride 0.9% 100 ML IVPB SCH (21:49)
[2020-08-14] MEDS: Donepezil HCl 5 MG TAB PO SCH (21:52)
[2020-08-14] MEDS: Terazosin HCl 1 MG CAP PO SCH (21:52)
[2020-08-15] MEDS: Sodium Chloride 0.45% 1,000 ML IV SCH ×3 (00:24→21:59)
[2020-08-15 04:37] LABS: #Lymphocytes 0.8 thou/uL (1.20-3.40); #Monocytes 0.8 thou/uL (0.11-0.59); #Neutrophils 12.7 thou/uL (1.40-6.50); %Basophils 0.2 % (0.0-1.0); %Eosinophils 0.3 % (0.0-10.0); %Lymphocytes 5.2 % (21.0-51.0); %Monocytes 5.5 % (0.0-10.0); %Neutrophils 88.7 % (42.0-75.0); Hemoglobin 12.6 g/dL (14.0-18.0); Mean Corpuscular HGB CONC 32.8 g/dL (32.0-36.0); Mean Corpuscular Hemoglobin 33.4 pg (27.0-31.0); Mean Platelet Volume 8.3 fL (7.4-10.4); Platelet Count 214 thou/uL (130-400); RBC Distribution Width 12.8 % (11.5-14.5); Red Blood Cell (RBC) Count 3.79 mill/uL (4.70-6.10); White Blood Cell (WBC) Count 14.3 thou/uL (4.8-10.8)
[2020-08-15 04:59] LABS: Anion Gap 11 mmol/L (10-20); BUN (Urea Nitrogen) 9 mg/dL (8.4-25.7); Calc. Creatinine Clearance 92 mL/min (70-130); Calcium 7.7 mg/dL (7.8-10.44); Carbon Dioxide 28 mmol/L (23-31); Chloride 100 mmol/L (98-107); Glucose 93 mg/dL (83-110); Potassium 3.5 mmol/L (3.5-5.1); Sodium 135 mmol/L (136-145)
[2020-08-15] MEDS: Dronedarone HCl 400 MG TAB PO SCH ×2 (09:07→16:21)
[2020-08-15] MEDS: Aspirin Chewable 81 MG TAB PER TUBE SCH (09:07)
[2020-08-15] MEDS: Calcium Carbonate 500 MG ChewTAB PO SCH ×3 (09:07→22:07)
[2020-08-15] MEDS: Docusate Sodium 100 MG/10 ML UDCUP PO SCH ×2 (09:07→22:10)
[2020-08-15] MEDS: Ramipril 5 MG CAP PO SCH (09:07)
[2020-08-15] MEDS: Megestrol Acetate 800 MG/20 ML UDCUP PO SCH ×2 (09:08→22:07)
[2020-08-15] MEDS: Diabetic Tussin 200 MG/10 ML UDCUP PO SCH ×2 (09:08→22:10)
[2020-08-15] MEDS: Enoxaparin Sodium 40 MG/0.4 ML SYRINGE SC SCH (09:08)
--- NOTE | 2020-08-15 09:34 | RAD ---
EXAM: Single view of the chest HISTORY: Pneumonia COMPARISON: 08/14/2020 FINDINGS: Single view of the chest shows a normal sized cardiomediastinal silhouette. Atherosclerotic calcifications are seen in the aorta. Diffuse increased interstitial markings are present. There appear to be superimposed airspace opacities in the bilateral lower lobes. No acute osseous abnormali ty. IMPRESSION: Stable exam
[2020-08-15 13:52] VITALS: BMI 23.0
--- NOTE | 2020-08-15 16:44 | PDOC.EP ---
- Subjective Date: 08/15/20 Time: 08:00 Interval History: No new cardiac or arrhythmia events. He continues with rapid breathing and moaning on exhale. He answers questions appropriately - Review of Systems Constitutional: reports: weakness. denies: chills, fever, malaise Respiratory: reports: shortness of breath, SOB with excertion. denies: cough, dry, hemoptysis, wheezing Cardiology: denies: chest pain, edema, heart racing, light headedness, palpitations Gastrointestinal: denies: abdominal pain, constipation, nausea, vomitting Musculoskeletal: denies: falls, neck pain, leg pain - Objective Allergies/Adverse Reactions: Allergies Allergy/AdvReac Type Severity Reaction Status Date / Time No Known Allergies Allergy Verified 11/18/19 22:58 Current Medications Acetaminophen (Acetaminophen 650 Mg Suppository) 650 mg MO Q4H PRN PRN Reason: TEMP>100.5/PAIN Albuterol/Ipratropium (Ipratropium/Albuterol Sulfate 3 Ml Neb) 3 ml NEB Q2H PRN PRN Reason: Dyspnea Albuterol/Ipratropium (Ipratropium/Albuterol Sulfate 3 Ml Neb) 3 ml NEB [id number] Last Admin: 08/15/20 14:06 Dose: 3 ml Documented by: Aspirin (Aspirin Chewable 81 Mg Tab) 81 mg PER TUBE DAILY [facility] Last Admin: 08/15/20 09:07 Dose: 81 mg Documented by: Calcium Carbonate (Calcium Carbonate 500 Mg Chewtab) 500 mg PO TID [facility] Last Admin: 08/15/20 16:21 Dose: 500 mg Documented by: Clonidine (Clonidine 0.1 Mg Tab) 0.1 mg PO Q2H PRN PRN Reason: SBP Greater Than 180 Docusate Sodium (Docusate Sodium 100 Mg/10 Ml Udcup) 100 mg PO BID [facility] Last Admin: 08/15/20 09:07 Dose: 100 mg Documented by: Donepezil HCl (Donepezil Hcl 5 Mg Tab) 5 mg PO HS [facility] Last Admin: 08/14/20 21:52 Dose: 5 mg Documented by: Dronedarone (Dronedarone Hcl 400 Mg Tab) 400 mg PO BID-[facility] Last Admin: 08/15/20 16:21 Dose: 400 mg Documented by: Enoxaparin Sodium (Enoxaparin Sodium 40 Mg/0.4 Ml Syringe) 40 mg SC 0900 [facility] Last Admin: 08/15/20 09:08 Dose: 40 mg Documented by: Guaifenesin (Diabetic Tussin 200 Mg/10 Ml Udcup) 600 mg PO Q12HR [facility] Last Admin: 08/15/20 09:08 Dose: 600 mg Documented by: Ceftriaxone Sodium 2 gm/ (Sodium Chloride) 100 mls @ 200 mls/hr IVPB 2100 [facility] Last Admin: 08/14/20 21:49 Dose: 100 mls Documented by: Sodium Chloride (1/2 Normal Saline) 1,000 mls @ 125 mls/hr IV .Q8H [facility] Last Admin: 08/15/20 11:28 Dose: 1,000 mls Documented by: Doxycycline Hyclate 100 mg/ (Sodium Chloride) 100 mls @ 100 mls/hr IVPB 0500,1700 [facility] Last Admin: 08/15/20 16:21 Dose: 100 mls Documented by: Lorazepam (Lorazepam 2 Mg/Ml Vial) 0.5 mg SLOW IVP Q1H PRN PRN Reason: AGITATION/ANXIETY Last Admin: 08/11/20 20:06 Dose: 0.5 mg Documented by: Megestrol Acetate (Megestrol Acetate 800 Mg/20 Ml Udcup) 200 mg PO BID [facility] Last Admin: 08/15/20 09:08 Dose: 200 mg Documented by: Morphine Sulfate (Morphine 2 Mg/Ml Vial) 1 mg SLOW IVP Q1H PRN PRN Reason: PAIN/ANXIETY Last Admin: 08/14/20 04:40 Dose: 1 mg Documented by: Ondansetron HCl (Ondansetron Pf 4 Mg/2 Ml Vial) 4 mg IVP Q6H PRN PRN Reason: Nausea/Vomiting Ramipril (Ramipril 5 Mg Cap) 10 mg PO DAILY [facility] Last Admin: 08/15/20 09:07 Dose: 10 mg Documented by: Sodium Chloride (Flush - Normal Saline 10 Ml Syringe) 10 ml IVF PRN PRN PRN Reason: Saline Flush Terazosin HCl (Terazosin Hcl 1 Mg Cap) 2 mg PO HS [facility] Last Admin: 08/14/20 21:52 Dose: 2 mg Documented by: Vital Signs & Weight: Vital Signs Temp Pulse Pulse Pulse Resp BP BP 12/17/20 16:20 98.8 F 90 28 H 08/15/20 14:14 92 88 153/68 H 124/63 08/15/20 14:06 88 20 08/15/20 12:00 98.7 F 86 30 H 08/15/20 11:08 81 24 H 08/15/20 08:00 08/15/20 07:22 94 24 H 08/15/20 07:19 93 30 H BP Pulse Ox Pulse Ox Pulse Ox 08/15/20 16:20 149/69 H 95 08/15/20 14:14 92 L 97 08/15/20 14:06 08/15/20 12:00 135/61 97 08/15/20 11:08 08/15/20 08:00 95 08/15/20 07:22 08/15/20 07:19 170/81 H 94 L Admit Weight 123 lb 9.6 oz Weight 156 lb I/O: I/O 08/14/20 08/15/20 08/16/20 06:59 06:59 06:59 Intake Total 2636 2485 Output Total 1175 1300 Balance 1461 1185 - Quality Measures Condition: Atrial Fibrillation/Flutter (hx or current) (lovenox) - Physical Exam General: cachectic, speech clear, other (possible acute delirium starting?). negative: appears well, affect appropriate HEENT: mucus membranes moist, normocephaly Neck: supple neck, midline trachea, no lymphadenopathy Cardiology: regular rate and rhythm, no murmur, PMI nondisplaced Lungs: decreased breath sounds, wheezes Neurology: cranial nerve 2-12 intact, grossly intact, no lateralizing findings Abdomen: unremarkable, active bowel sounds, no pulsations/bruits Extremities: dry, strong pulses, warm, + edema B - Labs Result Diagrams: 08/15/20 03:52 08/15/20 03:52 - EKG Interpretation EKG Method: Telemetry EKG shows: Sinus rhythm - Assessment/Plan Assessment/Plan: ASSESSMENT AND PLAN: Mr. Varner is a pleasant 80-year-old man with prior history of chronic obstructive pulmonary disease, smoking, who has no prior history of arrhythmias, has preserved left ventricular ejection fraction on current echocardiogram. He is admitted with lobar pneumonia, which was COVID negative. On the other hand while on monitoring, he started developing the atrial arrhythmias. All the episodes are atrial flutter, but also atrial fibrillation seems to be present at times, some of atrial flutter episodes are 2:1 conducted rapidly to the ventricles. Also overnight had episodes of bradycardia in the mid 30s. 1. Paroxysmal atrial flutter, possible typical isthmus dependent in morphology with rapid ventricular rate. 2. 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 -- ?need for PPM prison 3. Acute lobar pneumonia, negative for COVID. 4. Preserved LVEF on 2D echo on 08/09/2020 at 50% to 55%, normal atrial size, [id number] AI, [id number] TR, moderate PI, and normal pulmonary pressures. 5. Type 2 diabetes. 6. Severe longstanding COPD with history of smoking. 7. Anxiety. 8. Remote history of GI bleed. 9. History of pleural effusion. 10.QT prolongation -contributing anbx stopped -QTc now stable Heart rates and rhythm stable on multaq. Questionable candidate for prison OAC with hx of GIB but has been handling lovenox well. Continue multaq and lovenox. Will continue to follow as cardiology has signed off. No indication for PPM at this time
[2020-08-15] MEDS: cefTRIAXone\\ROCEPHIN 2 GM in Sodium Chloride 0.9% 100 ML IVPB SCH (22:06)
[2020-08-15] MEDS: Donepezil HCl 5 MG TAB PO SCH (22:07)
[2020-08-15] MEDS: Terazosin HCl 1 MG CAP PO SCH (22:07)
[2020-08-16 04:52] LABS: #Eosinphils 0.1 thou/uL (0.0-0.7); #Monocytes 0.9 thou/uL (0.11-0.59); #Neutrophils 10.5 thou/uL (1.40-6.50); %Basophils 0.3 % (0.0-1.0); %Eosinophils 0.6 % (0.0-10.0); %Lymphocytes 7.8 % (21.0-51.0); %Monocytes 7.5 % (0.0-10.0); %Neutrophils 83.8 % (42.0-75.0); Hemoglobin 12.5 g/dL (14.0-18.0); Mean Corpuscular HGB CONC 33.1 g/dL (32.0-36.0); Mean Platelet Volume 7.7 fL (7.4-10.4); Platelet Count 253 thou/uL (130-400); RBC Distribution Width 12.9 % (11.5-14.5); Red Blood Cell (RBC) Count 3.68 mill/uL (4.70-6.10); White Blood Cell (WBC) Count 12.5 thou/uL (4.8-10.8)
[2020-08-16 05:12] LABS: Anion Gap 10 mmol/L (10-20); BUN (Urea Nitrogen) 7 mg/dL (8.4-25.7); Calc. Creatinine Clearance 116 mL/min (70-130); Calcium 7.6 mg/dL (7.8-10.44); Carbon Dioxide 28 mmol/L (23-31); Chloride 100 mmol/L (98-107); Glucose 90 mg/dL (83-110); Potassium 3.4 mmol/L (3.5-5.1); Sodium 135 mmol/L (136-145)
[2020-08-16] MEDS: Sodium Chloride 0.45% 1,000 ML IV SCH (05:28)
--- NOTE | 2020-08-16 08:17 | RAD ---
Exam: Chest one view HISTORY:Pneumonia Comparison: 08/15/2020 FINDINGS: Cardiac silhouette: Normal Aorta: Atherosclerosis Pulmonary vessels: Normal Costophrenic angles: Bilateral pleural effusions LUNGS: Stable emphysematous change with scattered interstitial and alveolar opacities, predominantly the lung bases. Pneumothorax: None Osseous abnormalities: None IMPRESSION: 1. Stable multi lobar pneumonia. 2. Bilateral pleural effusions.
[2020-08-16] MEDS: Calcium Carbonate 500 MG ChewTAB PO SCH ×2 (08:53→17:03)
[2020-08-16] MEDS: Ramipril 5 MG CAP PO SCH (08:53)
[2020-08-16] MEDS: Aspirin Chewable 81 MG TAB PER TUBE SCH (08:53)
[2020-08-16] MEDS: Diabetic Tussin 200 MG/10 ML UDCUP PO SCH (08:53)
[2020-08-16] MEDS: Enoxaparin Sodium 40 MG/0.4 ML SYRINGE SC SCH (08:53)
[2020-08-16] MEDS: Dronedarone HCl 400 MG TAB PO SCH ×2 (08:53→17:03)
[2020-08-16] MEDS: Docusate Sodium 100 MG/10 ML UDCUP PO SCH (08:54)
[2020-08-16] MEDS: Megestrol Acetate 800 MG/20 ML UDCUP PO SCH (08:54)
--- NOTE | 2020-08-16 13:45 | PDOC.EP ---
- Subjective Date: 08/16/20 Time: 13:43 Interval History: Transfered to [facility]. remains arrhythmia free >48 hours. - Review of Systems Respiratory: reports: cough, shortness of breath, SOB with excertion. denies: wheezing Cardiology: denies: chest pain, heart racing - Objective Allergies/Adverse Reactions: Allergies Allergy/AdvReac Type Severity Reaction Status Date / Time No Known Allergies Allergy Verified 11/18/19 22:58 Current Medications Acetaminophen (Acetaminophen 650 Mg Suppository) 650 mg VT Q4H PRN PRN Reason: TEMP>100.5/PAIN Albuterol/Ipratropium (Ipratropium/Albuterol Sulfate 3 Ml Neb) 3 ml NEB Q2H PRN PRN Reason: Dyspnea Albuterol/Ipratropium (Ipratropium/Albuterol Sulfate 3 Ml Neb) 3 ml NEB [id number] [facility] Last Admin: 08/16/20 10:21 Dose: 3 ml Documented by: Aspirin (Aspirin Chewable 81 Mg Tab) 81 mg PER TUBE DAILY [facility] Last Admin: 08/16/20 08:53 Dose: 81 mg Documented by: Calcium Carbonate (Calcium Carbonate 500 Mg Chewtab) 500 mg PO TID [facility] Last Admin: 08/16/20 08:53 Dose: 500 mg Documented by: Ceftriaxone Sodium (Ceftriaxone\Rocephin 2 Gm Vial) 2 gm IM 1700 [facility] Stop: 08/16/20 20:00 Clonidine (Clonidine 0.1 Mg Tab) 0.1 mg PO Q2H PRN PRN Reason: SBP Greater Than 180 Docusate Sodium (Docusate Sodium 100 Mg/10 Ml Udcup) 100 mg PO BID [facility] Last Admin: 08/16/20 08:54 Dose: 100 mg Documented by: Donepezil HCl (Donepezil Hcl 5 Mg Tab) 5 mg PO HS [facility] Last Admin: 08/15/20 22:07 Dose: 5 mg Documented by: Dronedarone (Dronedarone Hcl 400 Mg Tab) 400 mg PO BID-[facility] Last Admin: 08/16/20 08:53 Dose: 400 mg Documented by: Enoxaparin Sodium (Enoxaparin Sodium 40 Mg/0.4 Ml Syringe) 40 mg SC 0900 [facility] Last Admin: 08/16/20 08:53 Dose: 40 mg Documented by: Guaifenesin (Diabetic Tussin 200 Mg/10 Ml Udcup) 600 mg PO Q12HR [facility] Last Admin: 08/16/20 08:53 Dose: 600 mg Documented by: Lorazepam (Lorazepam 2 Mg/Ml Vial) 0.5 mg SLOW IVP Q1H PRN PRN Reason: AGITATION/ANXIETY Last Admin: 08/11/20 20:06 Dose: 0.5 mg Documented by: Megestrol Acetate (Megestrol Acetate 800 Mg/20 Ml Udcup) 200 mg PO BID [facility] Last Admin: 08/16/20 08:54 Dose: 200 mg Documented by: Morphine Sulfate (Morphine 2 Mg/Ml Vial) 1 mg SLOW IVP Q1H PRN PRN Reason: PAIN/ANXIETY Last Admin: 08/14/20 04:40 Dose: 1 mg Documented by: Ondansetron HCl (Ondansetron Pf 4 Mg/2 Ml Vial) 4 mg IVP Q6H PRN PRN Reason: Nausea/Vomiting Ramipril (Ramipril 5 Mg Cap) 10 mg PO DAILY [facility] Last Admin: 08/16/20 08:53 Dose: 10 mg Documented by: Sodium Chloride (Flush - Normal Saline 10 Ml Syringe) 10 ml IVF PRN PRN PRN Reason: Saline Flush Terazosin HCl (Terazosin Hcl 1 Mg Cap) 2 mg PO HS [facility] Last Admin: 08/15/20 22:07 Dose: 2 mg Documented by: Vital Signs & Weight: Vital Signs Temp Pulse Resp BP Pulse Ox 08/16/20 12:00 97.9 F 83 30 H 121/83 96 08/16/20 10:21 75 18 96 08/16/20 09:05 98 08/16/20 07:28 97.3 F L 80 30 H 141/63 H 98 08/16/20 04:00 98.4 F 73 33 H 145/65 H 97 08/16/20 01:52 78 20 98 Admit Weight 123 lb 9.6 oz Weight 158 lb I/O: I/O 08/15/20 08/16/20 08/17/20 06:59 06:59 06:59 Intake Total 2485 2915 Output Total 1300 1850 Balance 1185 1065 - Quality Measures Condition: Atrial Fibrillation/Flutter (hx or current) (lovenox) - Medication Contraindications No Anticoagulant reason: Medical contraindication - Physical Exam General: alert & oriented x3, appears well HEENT: normocephaly Neck: no JVD/HJR Cardiology: no murmur Lungs: clear to auscultation, normal breath sounds, no wheezes Neurology: grossly intact Abdomen: unremarkable, soft Extremities: warm Musculoskeletal: no pain - Labs Result Diagrams: 08/16/20 03:54 08/16/20 03:54 - EKG Interpretation Status: image reviewed by me EKG Method: 12 Lead EKG shows: Sinus rhythm (QTc 470ms) - Assessment/Plan Assessment/Plan: ASSESSMENT AND PLAN: Mr. Varner is a pleasant 80-year-old man with prior history of chronic obstructive pulmonary disease, smoking, who has no prior history of arrhythmias, has preserved left ventricular ejection fraction on current echocardiogram. He is admitted with lobar pneumonia, which was COVID negative. On the other hand while on monitoring, he started developing the atrial a rrhythmias. All the episodes are atrial flutter, but also atrial fibrillation seems to be present at times, some of atrial flutter episodes are 2:1 conducted rapidly to the ventricles. Also overnight had episodes of bradycardia in the mid 30s. 1. Paroxysmal atrial flutter, possible typical isthmus dependent in morphology with rapid ventricular rate. 2. 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 Acute lobar pneumonia, negative for COVID. 4. Preserved LVEF on 2D echo on 08/09/2020 at 50% to 55%, normal atrial size, [id number] AI, kqan-[id number] TR, moderate PI, and normal pulmonary pressures. 5. Type 2 diabetes. 6. Severe longstanding COPD with history of smoking. 7. Anxiety. 8. Remote history of GI bleed. 9. History of pleural effusion. 10.QT prolongation -contributing anbx stopped -QTc now stable Heart rates and rhythm stable on multaq. Questionable candidate for longterm OAC with hx of GIB but has been handling lovenox well. Continue multaq and lovenox. No indication for PPM at this time. 08/16/20 Transfered to [facility]. remains arrhythmia free >48 hours. No recurrent flutter on Multaq. QTc 470ms. Not bradycardic. May be discharged from EP standpoint. 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 Risk for falls. OAC to be considered if atrial flutter/fib recurs. Would sign off. Plan to see in office in 6 weeks.
[2020-08-16] MEDS ORDERED: cefTRIAXone\\ROCEPHIN 2 GM VIAL IM SCH (17:00)
[2020-08-16 22:51] VITALS: BP 154/70; TEMP 97.5
--- NOTE | 2020-08-17 16:50 | EKG ---
Test Reason : AMS Blood Pressure : / mmHG Vent. Rate : 099 BPM Atrial Rate : 099 BPM P-R Int : 104 ms QRS Dur : 110 ms QT Int : 346 ms P-R-T Axes : 086 090 023 degrees QTc Int : 444 ms Sinus rhythm with short AR with frequent Premature ventricular complexes and Fusion complexes Biatrial enlargement Rightward axis Pulmonary disease pattern Incomplete right bundle branch block Nonspecific ST abnormality Abnormal ECG Confirmed by KYLER SHER ([id number]), continuity editor ALINA GUEVARA ([id number]) on 08/17/2020 4:50:01 PM Referred By: Confirmed By:KYLER Garcia
== END 2020-08-16 20:00 | disposition hospice, home (50) | DRG 871 ==
LOC: ERS 11:41 → ERHOLD 15:05 → IMCU/EMU 18:29 → 2NO 08-14 10:43
PROVIDERS: ADMIT Specialist; ATTEND Specialist
DX: A41.9 Sepsis, unspecified organism (principal); J96.01 Acute respiratory failure with hypoxia; I21.A1 Myocardial infarction type 2; J18.1 Lobar pneumonia, unspecified organism; E43 Unspecified severe protein-calorie malnutrition; J44.0 Chronic obstructive pulmonary disease with (acute) lower respiratory infection; I48.92 Unspecified atrial flutter; R64 Cachexia; E11.9 Type 2 diabetes mellitus without complications; N40.0 Benign prostatic hyperplasia without lower urinary tract symptoms; F03.90 Unspecified dementia, unspecified severity, without behavioral disturbance, psychotic disturbance, mood disturbance, and anxiety; M16.0 Bilateral primary osteoarthritis of hip; Z20.828 Contact with and (suspected) exposure to other viral communicable diseases; I48.91 Unspecified atrial fibrillation; G47.00 Insomnia, unspecified; E78.00 Pure hypercholesterolemia, unspecified; F41.9 Anxiety disorder, unspecified; Z79.899 Other long term (current) drug therapy; Z79.84 Long term (current) use of oral hypoglycemic drugs; Z79.51 Long term (current) use of inhaled steroids; Z90.49 Acquired absence of other specified parts of digestive tract; Z87.891 Personal history of nicotine dependence; I49.5 Sick sinus syndrome; I35.0 Nonrheumatic aortic (valve) stenosis; H91.90 Unspecified hearing loss, unspecified ear; Z68.23 Body mass index [BMI] 23.0-23.9, adult
CPT/HCPCS: 36415; 36416; 51701; 70470; 71045; 74177; 80048; 80053; 81003; 81015; 82553; 83036; 83605; 83735; 83880; 84484; 85025; 87040; 87086; 87149; 93005; 93010; 93306; 93970; 94640; 96365; 96375; J0456; J0696; J1100; J1160; J1650; J2060; J2270; J3490; J7050; J7620; Q9967; U0002